=== PATIENT | female | born 1960 | race Caucasian/White ===

== ENCOUNTER → 2017-02-26 | Outpatient (CLI) | payer BC ==
--- NOTE | 2017-02-26 11:54 | XR ---
Lumbosacral spine HISTORY: Back pain 5 views of the lumbosacral spine There is anterolisthesis grade 1 L4-5. Multilevel spondylosis is present. Loss of disc height present at the intervertebral levels. Lumbar vertebral bodies show preserved height. Bone mineralization is maintained. No evident spondylolysis. There is a mild spinal curvature. Calcifications superimposed o courtney the lower pole of the kidneys suggested. IMPRESSION: Degenerative disc disease and facet arthropathy. Suspect bilateral nephrolithiasis.
== END | disposition home or self-care (01) ==
LOC: RADXRYALE 11:06
PROVIDERS: ATTEND Family Medicine
DX: M51.36 Other intervertebral disc degeneration, lumbar region (principal); M46.06 Spinal enthesopathy, lumbar region
CPT/HCPCS: 72110

== ENCOUNTER → 2017-08-19 | Outpatient (CLI) | payer BC ==
--- NOTE | 2017-08-20 09:31 | MM ---
Reason for exam: screening (asymptomatic). Last mammogram was performed 1 year and 2 months ago. History: Family history of breast cancer in mother at age 61. Benign stereotactic core biopsy of the right breast, June 12, 2001. Reductions of both breasts, 1998. Core biopsy of the right breast. Physical Findings: A clinical breast exam by your physician is recommended on an annual basis and results should be correlated with mammographic findings. MG Screening Mammo w CAD Bilateral CC and MLO view(s) were taken. Prior study comparison: June 28, 2016, bilateral MG screening mammo w CAD. November 03, 2014, bilateral MG screening mammo w CAD. There are scattered fibroglandular densities. Stable benign calcifications. There is no discrete abnormality. No significant changes when compared with prior studies. ASSESSMENT: Benign, BI-RAD 2 RECOMMENDATION: Routine screening mammogram of both breasts in 1 year.
== END | disposition home or self-care (01) ==
LOC: RADMAMWWP 10:08
PROVIDERS: ATTEND Family Medicine
DX: Z12.31 Encounter for screening mammogram for malignant neoplasm of breast (principal)
CPT/HCPCS: 77067

== ENCOUNTER → 2017-11-05 | Outpatient (CLI) | payer BC ==
[2017-11-05 10:32] VITALS: BP 166/90; PULSE 80; RESP 20; TEMP 97.3; BMI 47.9
--- NOTE | 2017-11-05 11:27 | P.HPOB ---
History of Present Illness H&P Date: 11/05/17 Chief Complaint: The patient is here for her routine gynecologic exam. This is a 57-year-old G3 PIII with an LMP of 2013. The patient has been experiencing vaginal dryness and discomfort because of the dryness with sexual activity. She states she did not use the estrogen vaginal cream that was prescribed to her. She has used lubrication with slight improvement. She is otherwise without complaints and denies any postmenopausal bleeding. Review of Systems She has gained about 10 pounds over the last year. She denies respiratory, cardiac, or G.I. problems. Past Medical History Past Medical History: Asthma, Hypertension Additional Past Medical History / Comment(s): Arthritis. Past OB History: 3 section deliveries. 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 She has been menopausal since 2013. History of Any Multi-Drug Resistant Organisms: None Reported Past Surgical History: Breast Surgery (Breast reduction surgery), Section (Times 3), Cholecystectomy (Open), Tonsillectomy Past Anesthesia/Blood Transfusion Reactions: No Reported Reaction Past Psychological History: No Psychological Hx Reported Smoking Status: Never smoker Past Alcohol Use History: Occasional (3 to 4 per week) Past Drug Use History: None Reported - Past Family History Mother Family Medical History: Cancer, COPD Additional Family Medical History / Comment(s): emphysema,arthritis,skin and breast cancer Father Family Medical History: Cancer, Diabetes Mellitus, Hypertension Additional Family Medical History / Comment(s): stomach cancer Medications and Allergies Home Medications Medication Instructions Recorded Confirmed Type Albuterol Inhaler [Ventolin Hfa 1 - 2 puff INHALATION Q6HR PRN 11/05/17 History Inhaler] Meloxicam [Mobic] 15 mg PO DAILY 11/05/17 11/05/17 History Montelukast [Singulair] 10 mg PO DAILY 11/05/17 11/05/17 History Allergies Allergy/AdvReac Type Severity Reaction Status Date / Time Sulfa (Sulfonamide Allergy Rash/Hives Verified 11/05/17 11:23 Antibiotics) tetracycline Allergy Rash/Hives Verified 11/05/17 11:23 Exam - Vital Signs Vital signs: Vital Signs Temp Pulse Resp BP 11/05/17 10:22 97.3 F L 80 20 166/90 Intake and Output 11/04/17 11/05/17 11/05/17 22:59 06:59 14:59 Other: Weight 130.635 kg Height 5'5" BMI 47.9. This is a well-developed heavyset white female who is alert and oriented times 3 in no acute distress. HEENT: Within normal limits. NECK: Supple without mass or thyromegaly. CHEST AND LUNGS: Clear to auscultation. HEART: Regular rate and rhythm. BREASTS: Are without mass or discharge. AXILLARY EXAM: Negative for adenopathy. BACK: Negative for CVA tenderness. ABDOMEN: Soft, nontender, without palpable masses. PELVIC EXAM: Normal external genitalia with mild atrophy. Cervix and vagina appear normal with mild atrophy. There is no unusual discharge. There is no evidence of prolapse. The uterus is midposition, nongravid size and nontender. There are no palpable adnexal masses or tenderness. Bimanual examination is somewhat limited secondary to her size. RECTAL EXAM: recto vaginal exam is negative for mass or tenderness and is negative for occult blood. EXTREMITIES: Nontender. IMPRESSION: 1. 57-year-old menopausal female with normal gynecologic exam. 2. Dyspareunia secondary to vaginal dryness which is related to genital atrophy. PLAN: 1. Pap smear was performed. 2. Self breast examination was discussed. 3. Screening mammogram was done on 08/19/2017 and was benign. She will repeat this in one year. 4. Osteoporosis prevention was discussed. 5. Trial of Premarin vaginal cream 1 to 2 g intravaginally 2 times per week. A written prescription was given to the patient since she would like to shop around for this. 6. Colonoscopy was recommended. She will follow up with her primary care physician for this. 7. She will return in one year and PRN.
== END | disposition home or self-care (01) ==
LOC: WWCWWP 10:16
PROVIDERS: ATTEND Obstetrics & Gynecology
DX: Z53.9 Procedure and treatment not carried out, unspecified reason (principal)

== ENCOUNTER 2018-02-18 10:45 | Inpatient (IN) | payer BC ==
[2018-02-12 15:28] VITALS: BMI 46.5
--- NOTE | 2018-02-17 10:05 | HP ---
HISTORY AND PHYSICAL CHIEF COMPLAINT: Right knee pain. 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 It has worsened recently. She is having a difficult time with stairs and walking. She has been taking medications for this with only partial temporary relief. PAST MEDICAL HISTORY: Significant for asthma and hypertension. PAST SURGICAL HISTORY: Significant for breast reduction, section, and cholecystectomy. CURRENT MEDICATIONS: 1. Hydrochlorothiazide. 2. Lisinopril. 3. Mobic. 4. Singulair. 5. Tramadol. ALLERGIES: She has allergies to TETRACYCLINE and SULFA. FAMILY HISTORY: Significant for heart disease and cancer. SOCIAL HISTORY: Significant for previous tobacco use. REVIEW OF SYSTEMS: Sixteen-point review of systems otherwise reviewed and is noncontributory. PHYSICAL EXAMINATION: On examination, the patient is approximately 5 feet 5 inches, 288 pounds of endomorphic habitus. She has a BMI of 47.93. HEENT exam is nonfocal. Neck is supple. She has painless passive motion of the right hip. Straight leg raise is negative. Active motion right knee -12 to 80 degrees of flexion. She has a moderate effusion. She is tender about the medial joint line. Collaterals are stable, Tony's negative, Nan's is equivocal. She has genu varum alignment. Her distal neurovascular exam appears intact in the right lower extremity. Previous weightbearing notch, lateral and Merchant views of the right knee obtained in the office show severe medial and patellofemoral compartment narrowing. IMPRESSION: 1. Right knee severe medial and patellofemoral compartment osteoarthrosis. 2. Increased body mass index of 47.93. RECOMMENDATIONS: I talked to the patient at length regarding her condition and treatment options. At this point, she is quite symptomatic because of pain related to her osteoarthrosis despite conservative measures. After thorough discussion, she opts to proceed with surgery. We will plan to proceed with right total knee arthroplasty. Risks and benefits were discussed at length in layman's terms. The patient underwent preoperative medical evaluation by Dr. Nolan. We will institute DVT prophylaxis postoperatively. MMODL / IJN: [id number] /
[~2018-02-18 10:45] MED LIST: ACETAMINOPHEN TAB 500 MG TAB PO ONE; DEXAMETHASONE SOD PHOSPHATE 10 MG/ML 1 ML VIAL IV ONE; HYDROmorphone 0.5 MG/0.5 ML SYRINGE IVP PRN; LIDOCAINE 1% 20 ML VIAL (10MG/ML) FOR IV START INTRADERMA PRN; MELOXICAM 7.5 MG TAB PO ONE; MIDAZOLAM 2 MG/2 ML VIAL IV PRN; ONDANSETRON 4 MG/2 ML VIAL IVP ONE; ROPIVACAINE 1,100 MG, SODIUM CHLORIDE 0.9% 330 ML MISCELLANE PRN; SCOPOLAMINE 1.5MG/72HR PATCH TRANSDERM ONE; TRANEXAMIC ACID 1,000 MG in SODIUM CHLORIDE 0.9% 50 ML IVPB ONE
[2018-02-18] MEDS: LACTATED RINGERS 1,000 ML IV SCH (12:23)
[2018-02-18] MEDS ORDERED: MIDAZOLAM 2 MG/2 ML VIAL IVP ONE (13:15)
[2018-02-18] MEDS ORDERED: ROPIVACAINE 246.25 MG, EPINEPHrine 0.5 MG, KETOROLAC 30 MG, cloNIDine HCL/PF 80 MCG, WA... MISCELLANE ONE ×5 (13:33)
[2018-02-18] MEDS ORDERED: MIDAZOLAM 2 MG/2 ML VIAL ONE (14:10)
[2018-02-18] MEDS ORDERED: fentaNYL (PF) 50 MCG/ML 2 ML AMP ONE (14:10)
[2018-02-18] MEDS ORDERED: TRANEXAMIC ACID 1,000 MG/10 ML VIAL ONE (14:10)
[2018-02-18] MEDS ORDERED: diphenhydrAMINE 50 MG/ML 1 ML VIAL ONE (14:10)
[2018-02-18] MEDS ORDERED: PROPOFOL 10 MG/ML 20 ML VIAL IV ONE (14:10)
[2018-02-18] MEDS ORDERED: PHENYLEPHRINE-0.9% NACL SYG 1 MG/10 ML SYRINGE ONE (14:10)
[2018-02-18] MEDS ORDERED: SODIUM CHLORIDE 0.9% 100 ML BAG ONE (14:10)
--- NOTE | 2018-02-18 14:39 | P.ONQ ---
Anesthesiology Proc Note - PNB - Peripheral Nerve Block Performed Right Adductor Canal Infusion Time Out Performed: Yes ([id number]) Procedure Start Time: 13:25 Procedure Stop Time: 13:35 Indication: Acute Post-Operative Pain, Dx/Pain Location (Right Knee Pain), Requested by physician Sedation Type: Sedate with meaningful contact maintained Preparation: Sterile Prep Position: Supine Catheter: Indwelling Needle Types: On-Q Needle Size: 100mm (4") Needle Gauge: 21 Technique: Ultrasound Injectate: 0.5% Ropivacaine (see comment for volume) (20ml) Blood Aspirated: No Pain Paresthesia on Injection Noted: No Resistance on Injection: Normal Events: Uneventful and Well Tolerated
[2018-02-18] MEDS ORDERED: ceFAZolin 3,000 MG in SODIUM CHLORIDE 0.9% IRRIGATIO 3,000 ML IRRIGATION ONE (14:45)
[2018-02-18] MEDS ORDERED: LACTATED RINGERS 1,000 ML IV ONE ×2 (15:02)
[2018-02-18] MEDS ORDERED: ACETAMINOPHEN TAB 325 MG TAB PO PRN (15:48)
[2018-02-18] MEDS ORDERED: NALOXONE 0.4 MG/ML 1 ML VIAL IV PRN (15:48)
[2018-02-18] MEDS ORDERED: MORPHINE SULFATE 4 MG/ML SYRINGE IV PRN (15:48)
[2018-02-18] MEDS ORDERED: MAGNESIUM HYDROXIDE 2,400 MG/10 ML CUP PO PRN (15:48)
[2018-02-18] MEDS ORDERED: ONDANSETRON 4 MG/2 ML VIAL IVP PRN (15:48)
[2018-02-18] MEDS ORDERED: HYDROcodone/APAP 7.5-325MG 1 EACH TAB PO PRN (15:48)
[2018-02-18] MEDS ORDERED: MORPHINE SULFATE 2 MG/ML SYRINGE IVP PRN ×2 (15:48)
--- NOTE | 2018-02-18 16:27 | P.OP ---
Date of Procedure: 02/18/18 Preoperative Diagnosis: Right knee severe tricompartmental osteoarthrosis Postoperative Diagnosis: Same Procedure(s) Performed: Right total knee arthroplasty-cruciate retaining-cemented Implants: Depuy Attune size 6 narrow cemented femoral component, size 5 cemented tibial component with a 50 mm stem augmentation, 9 mm articular surface, 35 mm cemented patellar component. This is a posterior stabilized implant. Anesthesia: regional, local, spinal Surgeon: Juancarlos Chakraborty Front End Mechanic #1: Alex Najera Estimated Blood Loss (ml): 50 Pathology: other (Bone fragments) Condition: stable Disposition: PACU Indications for Procedure: The patient's a 57-year-old female who presents with progressive right knee pain secondary to osteoarthrosis despite conservative measures. A discussion of the risks and benefits of operative intervention versus continued conservative measures was made with patient. She opted to proceed with surgery. Specific risks of surgery to include infection, neurovascular injury, development of blood clots, possible component loosening, possible component failure and need for subsequent procedures was discussed. Informed consent was obtained. Operative Findings: As below Description of Procedure: The patient was brought to the operating room, and after induction of spinal anesthesia the right lower extremity was prepped and draped in normal fashion. The tourniquet was inflated to 270 mmHg. A longitudinal incision extending 3 finger breaths above the superior pole of patella extending to the medial aspect of the tibial tubercle was then made. The skin and subcutaneous tissues were divided sharply. Electrocautery was used for hemostasis. A medial parapatellar arthrotomy was then performed. The medial soft tissues to include the superficial and deep portions of the medial collateral ligament as well as the medial hamstring tendons were elevated subperiosteally. The proximal medial tibial osteophytes were carefully removed. The patella was everted. The knee was then flexed. The anterior cruciate ligament was sacrificed. A portion of the retropatellar fat pad was excised sharply. A starting hole was made in the distal femur 1 cm anterior to the posterior cruciate and origin. An intramedullary femoral guide was gently inserted planning on 5 valgus distal cut with 9 mm distal resection. The cutting block was pinned in place. The distal cut was then made. The posterior referencing sizing guide was utilized. I felt size 6 was most appropriate. 3 of external rotation was built into the system and verified off the trans-epicondylar axis and the posterior condyles. The cutting block was pinned in place. The anterior, posterior, and chamfer cuts were then made. The box guide was then used for the intercondylar cut which was performed with a reciprocating saw. The bone block was removed in one fragment. The trial femoral component was placed. There is good anterior to posterior and medial to lateral fit. The distal peg holes were drilled. The trial component was then removed. Attention was then paid towards preparing the proximal tibia. An extra medullary tibial guide was utilized in line with the tibial shaft and second metatarsal distally. I planned on a 0 posterior slope. I planned on 2 mm resection from the medial compartment. The cutting block was pinned in place. The proximal tibial cut was made and the bone removed in one fragment. The flexion and extension gaps were tight and therefore an additional 2 mm was resected utilizing the cutting block. The remnants of the medial and lateral menisci were excised the capsule junction with electrocautery. The tibia sized most appropriately at size 5. The trial femoral and tibial components were placed along with a 9 mm articular surface. I would to obtain full flexion and extension with good stability with varus and valgus stress. After several flexion and extension cycles, the tibial rotation was marked with electrocautery in line with the medial one third of the tibial tubercle. Attention was then paid towards preparing the patella. A patella reamer was utilized taking this down to 14 mm of bone stock. A good flush cut was made. The patella sized most appropriately 35 mm. The peg holes were drilled. The trial components placed. The knee was taken through range of motion. I had good patellofemoral tracking with no hands technique. The trial components were then removed. The posterior osteophytes of the distal femur were carefully removed with a curved osteotome. The tibia was prepared in the appropriate rotation with the appropriate drill and keel punch. The flexion and extension gaps were checked and felt to be symmetric. Bony surfaces were prepared with pulsatile lavage and dried. The tibial component was then cemented in placed and was fully seated. Excess cement was removed. The femoral component was cemented place and was fully seated. Excess cement was removed. The trial 9 mm articular surface was placed and the knee was put in full extension. The patella component cemented placed and was fully seated. After the cement had sufficiently hardened, the knee was again taken through a range of motion. Again I was able to obtain full flexion and extension with good stability with varus and valgus stress. The trial articular surface was removed and the final 9 mm articular surface was placed. This was fully seated. Pulsatile lavage was utilized. The tourniquet was deflated with the proximal a 70 minutes total tourniquet time. Final hemostasis was obtained with electrocautery. The second dose of IV TXA was given. The medial parapatellar arthrotomy was closed with #2 Ethibond suture. A deep drain was placed exiting laterally. The subcutaneous tissues were reapproximated with interrupted 2-0 Vicryl sutures. The skin was reapproximated with 3-0 subcuticular strata fix suture. Skin tape and adhesive was applied. A sterile dressing was applied. The patient was then awoken from sedation and transferred to the recovery room in good condition. Blood loss was estimated at 50 mL. No complications were incurred. Sponge and needle counts were correct in the case.
--- NOTE | 2018-02-18 16:39 | XR ---
EXAMINATION TYPE: XR knee limited RT DATE OF EXAM: 02/18/2018 COMPARISON: 10/21/2014 HISTORY: Postop knee surgery TECHNIQUE: 2 views FINDINGS: There is a new right knee prosthesis. Components appear in anatomic position. IMPRESSION: No complicating process seen.
[2018-02-18] MEDS: traMADol 50 MG TAB PO SCH ×2 (18:23→20:58)
--- NOTE | 2018-02-18 18:53 | P.CONS ---
History of Present Illness - Reason for Consult Consult date: 02/18/18 Management of asthma and hypertension Requesting physician: Juancarlos Chakraborty - Chief Complaint Medical management of asthma and hypertension - History of Present Illness The patient is a 57 morbidly obese female who is currently postop day #0 after having a right total knee replacement secondary to a history of severe right knee osteoarthrosis. The patient reports her pain is adequately controlled she does mention some numbness and tingling in her right lower extremity, as she is able to wiggle her toes. She denies any chest pain or shortness of breath. She denies any wheezes or cough, she reports an episode of nausea that has since resolved since having Zofran. Review of Systems All other 12 point review of systems negative except per HPI Past Medical History Past Medical History: Asthma, Hypertension, Osteoarthritis (OA) Additional Past Medical History / Comment(s): . History of Any Multi-Drug Resistant Organisms: None Reported Past Surgical History: Breast Surgery, Section, Cholecystectomy, Tonsillectomy Additional Past Surgical History / Comment(s): C/S x3, param breast reduction Past Anesthesia/Blood Transfusion Reactions: No Reported Reaction Past Psychological History: No Psychological Hx Reported Smoking Status: Former smoker Past Alcohol Use History: Occasional Additional Past Alcohol Use History / Comment(s): smoked from age [age], Past Drug Use History: None Reported - Past Family History Mother Family Medical History: Cancer, GI Bleed Additional Family Medical History / Comment(s): skin and breast cancer Father Family Medical History: Cancer Additional Family Medical History / Comment(s): stomach cancer Medications and Allergies Home Medications Medication Instructions Recorded Confirmed Type Albuterol Inhaler [Ventolin Hfa 1 - 2 puff INHALATION RT-Q6H PRN 11/05/17 History Inhaler] Meloxicam [Mobic] 15 mg PO DAILY 11/05/17 02/18/18 History Montelukast [Singulair] 10 mg PO HS 11/05/17 02/18/18 History Acetaminophen [Tylenol Extra 1,000 mg PO BID PRN 02/12/18 02/18/18 History Strength] Hydrochlorothiazide [Hydrodiuril] 25 mg PO DAILY 02/12/18 02/18/18 History Lisinopril [Zestril] 20 mg PO BID 02/12/18 02/18/18 History Multivitamins, Thera [Multivitamin 1 tab PO DAILY 02/12/18 02/18/18 History (formulary)] traMADol HCL [Ultram] 50 mg PO TID PRN 02/12/18 02/18/18 History Apixaban [Eliquis] 2.5 mg PO BID #30 tab 02/18/18 Rx Allergies Allergy/AdvReac Type Severity Reaction Status Date / Time codeine Allergy Rash/Hives Verified 02/18/18 18:47 Sulfa (Sulfonamide Allergy Rash/Hives Verified 02/18/18 18:47 Antibiotics) tetracycline Allergy Rash/Hives Verified 02/18/18 18:47 Physical Exam Vitals: Vital Signs Temp Pulse Resp BP BP Pulse Ox 02/18/18 17:20 84 12 114/81 95 02/18/18 17:00 78 16 120/55 95 02/18/18 16:45 78 18 113/61 96 02/18/18 16:30 84 18 121/60 96 02/18/18 16:14 97.8 F 94 18 125/58 96 02/18/18 13:27 79 18 128/60 96 02/18/18 13:02 75 18 142/65 95 02/18/18 11:49 99.0 F 88 18 160/76 95 Intake and Output 02/18/18 02/18/18 02/18/18 06:59 14:59 22:59 Intake Total 1051 925 Output Total 300 Balance 1051 625 Intake: IV 1051 925 Output: Urine 250 Estimated Blood Loss 50 Other: Weight 127.006 kg Constitutional: No acute distress, conversant, pleasant Eyes: Anicteric sclerae, moist conjunctiva, no lid-lag, PERRLA ENMT: NC/AT,Oropharynx clear, no erythema, exudates Neck:Supple, FROM, no masses, or JVD, No carotid bruits; No thyromegaly Lungs: Clear to auscultation, Clear to percussion, Normal respiratory effort, no accessory muscle use Cardiovascular: Heart regular in rate and rhythm, No murmurs, gallops, or rubs no peripheral edema Abdominal: Soft Nontender, nom distended, no guarding, no rebound or rigidity, Normoactive bowel sounds No hepatomegaly, No splenomegaly, No palpable mass No abdominal wall hernia noted Skin: Normal temperature, tone, texture, turgor, No induration No subcutaneous nodules, No rash, lesions, No ulcers Extremities:No digital cyanosis No clubbing, Pedal pulses intact and symmetrical Radial pulses intact and symmetrical Normal gait and station, No calf tenderness Psychiatric: Alert and oriented to person, place and time, Appropriate affect Intact judgement Neuro: Muscles Strength 5/5 in all 4 extremities, Sensation to light touch grossly present throughout, Cranial nerves II-XII grossly intact. No focal sensory deficits Assessment and Plan (1) History of arthroplasty of right knee Current Visit: Yes Status: Acute Code(s): Z96.651 - PRESENCE OF RIGHT ARTIFICIAL KNEE JOINT SNOMED Code(s): 158300677 (2) Asthma Current Visit: Yes Status: Acute Code(s): J45.909 - UNSPECIFIED ASTHMA, UNCOMPLICATED SNOMED Code(s): 366276803 (3) Essential hypertension Current Visit: Yes Status: Acute Code(s): I10 - ESSENTIAL (PRIMARY) HYPERTENSION SNOMED Code(s): 40076933 Plan: The patient is admitted to Dr. Oliver primary orthopedic service and is postop day #0 status post right knee total arthroplasty, will defer to primary team regarding ongoing pain management. Otherwise patient is hemodynamically stable she has asthma, which is stable without any acute exacerbation, her blood pressure is also stable resume her home medications, follow-up postop CBC. Agree with plan for physical therapy and rehab
[2018-02-18] MEDS: SENNOSIDES-DOCUSATE SODIUM 1 EACH TAB PO SCH (20:58)
[2018-02-18] MEDS: MONTELUKAST 10 MG TAB PO SCH (21:02)
[2018-02-18] MEDS: LISINOPRIL 20 MG TAB PO SCH (21:02)
[2018-02-18] MEDS: HYDROcodone/APAP 7.5-325MG 1 EACH TAB PO PRN (22:24)
[2018-02-19] MEDS: LACTATED RINGERS 1,000 ML IV SCH (00:29)
[2018-02-19] MEDS: HYDROcodone/APAP 7.5-325MG 1 EACH TAB PO PRN ×3 (05:17→16:03)
--- NOTE | 2018-02-19 05:39 | P.PN ---
Progress Note - Text Progress Note Date: 02/19/18 The patient is doing well status post total knee replacement. Pain is well controlled by a combination of local anesthetic infusion through the adductor canal catheter and oral analgesics. There are no signs of infection around the catheter skin entry site. The local anesthetic infusion will be continued as per protocol.
[2018-02-19 07:33] LABS: Basophils % (A) 0 %; Eosinophils % (A) 0 %; HCT 34.6 % (34.0-46.0); HGB 11.4 gm/dL (11.4-16.0); Lymphocytes # (A) 1.6 k/uL (1.0-4.8); Lymphocytes % (A) 15 %; MCH 32.2 pg (25.0-35.0); MCHC 33.1 g/dL (31.0-37.0); MCV 97.3 fL (80.0-100.0); Mean Platelet Volume 7.8; Monocytes # (A) 0.6 k/uL (0-1.0); Monocytes % (A) 5 %; Neutrophils # (A) 8.7 k/uL (1.3-7.7); Neutrophils % (A) 78 %; Platelet Count 221 k/uL (150-450); RBC 3.56 m/uL (3.80-5.40); RDW 13.9 % (11.5-15.5); WBC 11.2 k/uL (3.8-10.6)
[2018-02-19] MEDS: LISINOPRIL 20 MG TAB PO SCH ×2 (08:38→21:12)
[2018-02-19] MEDS: traMADol 50 MG TAB PO SCH ×4 (08:38→21:12)
[2018-02-19] MEDS: HYDROCHLOROTHIAZIDE 25 MG TAB PO SCH (08:38)
[2018-02-19] MEDS: RIVAROXABAN 10 MG TAB PO SCH (08:58)
--- NOTE | 2018-02-19 10:45 | P.PN ---
Subjective Progress Note Date: 02/19/18 The patient doing well postop day #1 after having right total knee arthroplasty. Reports the pain is adequately controlled. He does report some right lower extremity paresthesias, but has good pedal pulses and good color. No acute events overnight Objective - Vital Signs Vital signs: Vital Signs Temp 97.8 F 02/19/18 07:15 Pulse 64 02/19/18 07:15 Resp 12 02/19/18 07:15 BP 120/78 02/19/18 07:15 Pulse Ox 97 02/19/18 07:15 Intake & Output 02/18/18 02/19/18 02/19/18 18:59 06:59 18:59 Intake Total 1976 840 Output Total 949 155 7810 Balance 1676 580 -1200 Weight 127.006 kg Intake: IV 1975 Intake, IV Titration 840 Amount Lactated Ringers 1,000 ml 840 @ 70 mls/hr IV .[id number] [id number] Rx#:[id number] Output: Drainage 260 Knee 260 Urine 250 1200 Uretheral ([place]) 1200 Estimated Blood Loss 50 - Exam Constitutional: No acute distress, conversant, pleasant Eyes: Anicteric sclerae, moist conjunctiva, no lid-lag, PERRLA ENMT: NC/AT,Oropharynx clear, no erythema, exudates Neck:Supple, FROM, no masses, or JVD, No carotid bruits; No thyromegaly Lungs: Clear to auscultation, Clear to percussion, Normal respiratory effort, no accessory muscle use Cardiovascular: Heart regular in rate and rhythm, No murmurs, gallops, or rubs no peripheral edema Abdominal: Soft Nontender, nom distended, no guarding, no rebound or rigidity, Normoactive bowel sounds No hepatomegaly, No splenomegaly, No palpable mass No abdominal wall hernia noted Skin: Normal temperature, tone, texture, turgor, No induration No subcutaneous nodules, No rash, lesions, No ulcers Extremities: Right anterior knee effusion and swelling postoperatively. No digital cyanosis No clubbing, Pedal pulses intact and symmetrical Radial pulses intact and symmetrical Normal gait and station, No calf tenderness Psychiatric: Alert and oriented to person, place and time, Appropriate affect Intact judgement Neuro: Muscles Strength 5/5 in all 4 extremities, Sensation to light touch grossly present throughout, Cranial nerves II-XII grossly intact. No focal sensory deficits - Labs CBC & Chem 7: 02/19/18 07:01 Labs: Abnormal Lab Results - Last 24 Hours (Table) 02/19/18 Range/Units 07:01 WBC 11.2 H (3.8-10.6) k/uL RBC 3.56 L (3.80-5.40) m/uL Neutrophils # 8.7 H (1.3-7.7) k/uL Assessment and Plan (1) Asthma Narrative/Plan: * Stable disease without any acute exacerbation Current Visit: Yes Status: Acute Code(s): J45.909 - UNSPECIFIED ASTHMA, UNCOMPLICATED SNOMED Code(s): 088375760 (2) Essential hypertension Narrative/Plan: * Blood pressure stable controlled continue home regimen of HCTZ and lisinopril Current Visit: Yes Status: Acute Code(s): I10 - ESSENTIAL (PRIMARY) HYPERTENSION SNOMED Code(s): 50810910 (3) History of arthroplasty of right knee Narrative/Plan: * Post op management per orthopedic service * Continue with PT OT plans for rehab therapy Current Visit: Yes Status: Acute Code(s): Z96.651 - PRESENCE OF RIGHT ARTIFICIAL KNEE JOINT SNOMED Code(s): 317700017 Plan: Anticipated discharge: Per primary team
--- NOTE | 2018-02-19 12:35 | P.PN ---
Subjective Progress Note Date: 02/19/18 Principal diagnosis: Status post right total knee arthroplasty Patient seen today resting in her hospital bed, she appears comfortable. She's ambulated with therapy. Pain is controlled at this time. She denies any headaches, lightheadedness, chest pain or shortness of breath. Objective - Vital Signs Vital signs: Vital Signs Temp 97.8 F 02/19/18 07:15 Pulse 64 02/19/18 07:15 Resp 12 02/19/18 07:15 BP 120/78 02/19/18 07:15 Pulse Ox 97 02/19/18 07:15 Intake & Output 02/18/18 02/19/18 02/19/18 18:59 06:59 18:59 Intake Total 1976 840 Output Total 058 370 2496 Balance 1676 580 -1450 Weight 127.006 kg Intake: IV 1975 Intake, IV Titration 840 Amount Lactated Ringers 1,000 ml 840 @ 70 mls/hr IV .[id number] TEREZA Rx#:[id number] Output: Drainage 260 Knee 260 Urine 250 1450 Uretheral ([place]) 1200 Estimated Blood Loss 50 Other: # Voids 1 - Exam Right lower extremity: Incision is clean, dry, and intact. The prineo tape is in good condition. There is minimal soft tissue swelling and ecchymosis surrounding the medial and lateral aspects of the incision. Calf is soft, no tenderness with palpation. Plantar flexion, dorsiflexion, EHL, FHL are intact. Sensory exam to light touch throughout the extremity is intact, dorsal pedis pulses 2+. - Labs CBC & Chem 7: 02/19/18 07:01 Labs: Abnormal Lab Results - Last 24 Hours (Table) 02/19/18 Range/Units 07:01 WBC 11.2 H (3.8-10.6) k/uL RBC 3.56 L (3.80-5.40) m/uL Neutrophils # 8.7 H (1.3-7.7) k/uL Assessment and Plan Plan: Assessment: Postoperative day 1 status post right total knee arthroplasty Plan: Pain control, continue oral medication GI and DVT prophylaxis Ice and elevate often Wound care instructions discussed Medical recommendations Discharge planning: Patient may be discharged home today Time with Patient: Less than 30
[2018-02-19] MEDS: MULTIVITAMINS, THERA 1 EACH TAB PO SCH (13:57)
[2018-02-19 19:43] VITALS: RESP 16
[2018-02-19] MEDS: SENNOSIDES-DOCUSATE SODIUM 1 EACH TAB PO SCH (21:12)
[2018-02-19] MEDS: MONTELUKAST 10 MG TAB PO SCH (21:12)
[2018-02-20] MEDS: LACTATED RINGERS 1,000 ML IV SCH (05:10)
--- NOTE | 2018-02-20 07:21 | P.PN ---
Progress Note - Text Postoperative day # 2 status post total knee arthroplasty, on adductor canal perineural catheter placed for postoperative analgesia. Ropivacaine 0.2% 10 mL per hour through ON-Q pump continuous infusion. Pain control ok, had to increase infusion last night. On visual analog scale 4/ 10 Patient is taking PRN oral pain medications. Catheter site: Looks Ok. There is no erythema or tenderness. Continue with the current pain management plan and will follow.
[2018-02-20] MEDS: traMADol 50 MG TAB PO SCH (08:19)
[2018-02-20 08:26] VITALS: BP 149/85; PULSE 85; TEMP 98.2
[2018-02-20] MEDS: RIVAROXABAN 10 MG TAB PO SCH (08:28)
[2018-02-20] MEDS: LISINOPRIL 20 MG TAB PO SCH (08:29)
[2018-02-20] MEDS: HYDROCHLOROTHIAZIDE 25 MG TAB PO SCH (08:29)
[2018-02-20] MEDS: MULTIVITAMINS, THERA 1 EACH TAB PO SCH (08:31)
--- NOTE | 2018-02-20 10:15 | P.PN ---
Subjective Progress Note Date: 02/20/18 The patient doing well postop day 2 after having right total knee arthroplasty. Reports the pain is adequately controlled. Patient has no complaints today plans to go home and receive home physical therapy No acute events overnight Objective - Vital Signs Vital signs: Vital Signs Temp 98.2 F 02/20/18 08:25 Pulse 85 02/20/18 08:25 Resp 16 02/20/18 08:25 BP 149/85 02/20/18 08:25 Pulse Ox 92 L 02/20/18 08:25 Intake & Output 02/19/18 02/20/18 02/20/18 18:59 06:59 18:59 Intake Total 1540 240 Output Total 1450 Balance -1450 1540 240 Intake: Oral 1540 240 Output: Urine 1450 Uretheral ([place]) 1200 Other: # Voids 1 1 - Exam Constitutional: No acute distress, conversant, pleasant Eyes: Anicteric sclerae, moist conjunctiva, no lid-lag, PERRLA ENMT: NC/AT,Oropharynx clear, no erythema, exudates Neck:Supple, FROM, no masses, or JVD, No carotid bruits; No thyromegaly Lungs: Clear to auscultation, Clear to percussion, Normal respiratory effort, no accessory muscle use Cardiovascular: Heart regular in rate and rhythm, No murmurs, gallops, or rubs no peripheral edema Abdominal: Soft Nontender, nom distended, no guarding, no rebound or rigidity, Normoactive bowel sounds No hepatomegaly, No splenomegaly, No palpable mass No abdominal wall hernia noted Skin: Normal temperature, tone, texture, turgor, No induration No subcutaneous nodules, No rash, lesions, No ulcers Extremities: Right anterior knee effusion and swelling postoperatively. No digital cyanosis No clubbing, Pedal pulses intact and symmetrical Radial pulses intact and symmetrical Normal gait and station, No calf tenderness Psychiatric: Alert and oriented to person, place and time, Appropriate affect Intact judgement Neuro: Muscles Strength 5/5 in all 4 extremities, Sensation to light touch grossly present throughout, Cranial nerves II-XII grossly intact. No focal sensory deficits - Labs CBC & Chem 7: 02/19/18 07:01 Assessment and Plan (1) Asthma Narrative/Plan: * Stable disease without any acute exacerbation Current Visit: Yes Status: Acute Code(s): J45.909 - UNSPECIFIED ASTHMA, UNCOMPLICATED SNOMED Code(s): 922135352 (2) Essential hypertension Narrative/Plan: * Blood pressure stable controlled continue home regimen of HCTZ and lisinopril Current Visit: Yes Status: Acute Code(s): I10 - ESSENTIAL (PRIMARY) HYPERTENSION SNOMED Code(s): 36337065 (3) History of arthroplasty of right knee Narrative/Plan: * Post op management per orthopedic service * Continue with PT OT plans for rehab therapy Current Visit: Yes Status: Acute Code(s): Z96.651 - PRESENCE OF RIGHT ARTIFICIAL KNEE JOINT SNOMED Code(s): 979987224 Plan: Patient medically stable for discharge, we will plan to sign off today
[2018-02-20] MEDS: HYDROcodone/APAP 7.5-325MG 1 EACH TAB PO PRN (10:38)
--- NOTE | 2018-02-20 10:49 | P.PN ---
Subjective Progress Note Date: 02/20/18 Principal diagnosis: Status post right total knee arthroplasty Patient seen today resting in her hospital bed, she appears comfortable. She's ambulated with therapy. Pain is controlled at this time. She denies any headaches, lightheadedness, chest pain or shortness of breath. Objective - Vital Signs Vital signs: Vital Signs Temp 98.2 F 02/20/18 08:25 Pulse 85 02/20/18 08:25 Resp 16 02/20/18 08:25 BP 149/85 02/20/18 08:25 Pulse Ox 92 L 02/20/18 08:25 Intake & Output 02/19/18 02/20/18 02/20/18 18:59 06:59 18:59 Intake Total 1540 240 Output Total 1450 Balance -1450 1540 240 Intake: Oral 1540 240 Output: Urine 1450 Uretheral ([place]) 1200 Other: # Voids 1 1 - Exam Right lower extremity: Incision is clean, dry, and intact. The prineo tape is in good condition. There is minimal soft tissue swelling and ecchymosis surrounding the medial and lateral aspects of the incision. Calf is soft, no tenderness with palpation. Plantar flexion, dorsiflexion, EHL, FHL are intact. Sensory exam to light touch throughout the extremity is intact, dorsal pedis pulses 2+. - Labs CBC & Chem 7: 02/19/18 07:01 Assessment and Plan Plan: Assessment: Postoperative day #2 status post right total knee arthroplasty Plan: Pain control, continue oral medication GI and DVT prophylaxis Ice and elevate often Wound care instructions discussed Medical recommendations Discharge planning: Patient will be discharged home today Time with Patient: Less than 30
--- NOTE | 2018-02-20 10:52 | P.DS ---
Providers Date of admission: 02/18/18 11:32 Expected date of discharge: 02/20/18 Attending physician: Juancarlos Chakraborty Consults: 02/18/18 15:48 Consult Physician Routine Consulting Provider: Ofelia Valdes Consult Reason/Comments: medical management Do you want consulting provider notified?: Yes Primary care physician: Stated None Hospital Course: Date of admission: 02/18/2018 Date of discharge: 02/20/2018 Admission diagnosis: Status post right total knee arthroplasty Discharge diagnosis: Same Attending physician: Dr. Chakraborty Surgical procedures: Right total knee arthroplasty Brief history: Patient is a 57-year-old female with a history of progressive primary right knee osteoarthritis. At this point patient has failed conservative treatment measures and has opted to proceed with a elective right total knee arthroplasty. Hospital course: Details of patient's surgery can be found in operative report. Patient tolerated the procedure well and was subsequently transported to orthopedic floor. Patient's orthopeidc and medical care was provided daily. Patient had daily laboratory tests performed for evaluation of overall blood counts. Patient had daily physical therapy to include strengthening range of motion as well as education with walker ambulation. Patient had daily CPM usage as part of their physical therapy program. Patient was treated with Xarelto for their postoperative DVT prophylaxis during their inpatient stay. Patient was noted to have a relatively uneventful postoperative course. Patient reported satisfactory pain control with oral pain medications by postoperative day 0. Patient showed satisfactory progress with physical therapy. Patient moved steadily through the program and had no difficulty meeting the goals by postoperative day 2. Given patient's otherwise satisfactory course and having met physical therapy goals, plan is to discharge patient home on postoperative day 2. Discharge condition/disposition: Patient will be discharged home in stable condition. Discharge medications: Instructions are given on resumption of patient's normal daily medications per primary care recommendation, in addition patient will be prescribed Elnora 7.5 mg/325 mg, tramadol 50 mg, Colace 100 mg, Eliquis 2.5mg. Discharge instructions: 1. Wound care and infection precautions, keep incision dry and covered while showering, no lotions, creams, moisturizers. No soaking, tubs, pools, hottubs. Do not scrub over the incision. 2. Weight-bear as tolerated] with walker / cane until follow-up. 3. Ice and elevate when necessary. Do not exceed 20 minutes per hour with ice pack. 4. Utilize compression sleeve until seen at first follow up appointment. 5. Visiting nursing care. 6. Home physical therapy [including home CPM]. 7. Pain meds and anticoagulants per prescription. 8. Pain medication has potential to cause constipation. Increase oral fluid and fiber intake. Contact primary care provider if you have not had a bowel movement within 48 hours after discharge 9. No anti-inflammatory medication until discussed at first post operative visit, this including Motrin, Aleve, Mobic, Diclofenac. 10. Follow up in office at 2 weeks postop with Harris Najera PA-C 11. Follow up with your primary care doctor 7-10 days after discharge. 12. Contact [facility] with any questions, . Procedures: Right total knee arthroplasty Patient Condition at Discharge: Good Plan - Discharge Summary Discharge Rx Participant: Yes New Discharge Prescriptions: New Apixaban [Eliquis] 2.5 mg PO BID #30 tab Docusate [Colace] 100 mg PO DAILY #30 capsule HYDROcodone/APAP 7.5-325MG [Elnora 7.5] 1 - 2 each PO Q6HR PRN #56 tab PRN Reason: Pain traMADol HCl [Ultram] 50 mg PO Q6H PRN #28 tab PRN Reason: Pain No Action Montelukast [Singulair] 10 mg PO HS Meloxicam [Mobic] 15 mg PO DAILY Albuterol Inhaler [Ventolin Hfa Inhaler] 1 - 2 puff INHALATION RT-Q6H PRN PRN Reason: Shortness Of Breath Multivitamins, Thera [Multivitamin (formulary)] 1 tab PO DAILY Lisinopril [Zestril] 20 mg PO BID Hydrochlorothiazide [Hydrodiuril] 25 mg PO DAILY Acetaminophen [Tylenol Extra Strength] 1,000 mg PO BID PRN PRN Reason: Pain traMADol HCL [Ultram] 50 mg PO TID PRN PRN Reason: Pain Discharge Medication List Albuterol Inhaler [Ventolin Hfa Inhaler] 1 - 2 puff INHALATION RT-Q6H PRN [History] Meloxicam [Mobic] 15 mg PO DAILY 11/05/17 [History] Montelukast [Singulair] 10 mg PO HS 11/05/17 [History] Acetaminophen [Tylenol Extra Strength] 1,000 mg PO BID PRN 02/12/18 [History] Hydrochlorothiazide [Hydrodiuril] 25 mg PO DAILY 02/12/18 [History] Lisinopril [Zestril] 20 mg PO BID 02/12/18 [History] Multivitamins, Thera [Multivitamin (formulary)] 1 tab PO DAILY 02/12/18 [History ] traMADol HCL [Ultram] 50 mg PO TID PRN 02/12/18 [History] Apixaban [Eliquis] 2.5 mg PO BID #30 tab 02/18/18 [Rx] Docusate [Colace] 100 mg PO DAILY #30 capsule 02/20/18 [Rx] HYDROcodone/APAP 7.5-325MG [Elnora 7.5] 1 - 2 each PO Q6HR PRN #56 tab 02/20/18 [ Rx] traMADol HCl [Ultram] 50 mg PO Q6H PRN #28 tab 02/20/18 [Rx] Follow up Appointment(s)/Referral(s): Alex Najera PAC [PHYSICIAN SENIOR BUSINESS ARCHITECT] - 03/07/18 2:10 pm Activity/Diet/Wound Care/Special Instructions: Orthopedic Discharge Instructions: 1. Wound care and infection precautions, keep incision dry and covered while showering, no lotions, creams, moisturizers. No soaking, pools, hot tubs. Do not scrub over incision. 2. Weight-bear as tolerated with walker / cane until follow-up. 3. Ice and elevate when necessary. Do not exceed 20 minutes per hour with ice pack. 4. Utilize compression sleeve until seen at first follow up appointment. 5. Visiting nursing care. 6. Home physical therapy including home CPM. 7. Pain meds and anticoagulants per prescription. 8. Pain medication has potential to cause constipation. Increase oral fluid and fiber intake. Contact primary care provider if you have not had a bowel movement within 48 hours after discharge. 9. No anti-inflammatory medication until discussed at first post operative visit, this including Motrin, Aleve, Mobic, Diclofenac. 10. Follow up in office at 2 weeks postop with Harris Najera PA-C 11. Follow up with your primary care doctor 7-10 days after discharge. 12. Contact [facility] with any questions, . Discharge Disposition: HOME WITH HOME HEALTH SERVICES
== END 2018-02-20 12:33 | disposition home health service (06) | DRG 470 ==
LOC: 2ORMAIN 11:32 → 3SUR 16:39
PROVIDERS: ADMIT Orthopaedic Surgery; ATTEND Orthopaedic Surgery
PROC: 0SRC0J9 Replacement of Right Knee Joint with Synthetic Substitute, Cemented, Open Approach (ICD-10-PCS; principal; 2018-02-18 13:45)
DX: M17.11 Unilateral primary osteoarthritis, right knee (principal); Z68.42 Body mass index [BMI] 45.0-49.9, adult; E66.01 Morbid (severe) obesity due to excess calories; I10 Essential (primary) hypertension; J45.909 Unspecified asthma, uncomplicated; Z79.1 Long term (current) use of non-steroidal anti-inflammatories (NSAID); Z79.899 Other long term (current) drug therapy; Z80.0 Family history of malignant neoplasm of digestive organs; Z80.3 Family history of malignant neoplasm of breast; Z87.891 Personal history of nicotine dependence
CPT/HCPCS: 85025; 88300

== ENCOUNTER 2018-08-12 06:03 | Observation (INO) | payer BC ==
[2018-08-05 16:49] VITALS: BMI 43.2
--- NOTE | 2018-08-11 08:50 | HP ---
HISTORY AND PHYSICAL CHIEF COMPLAINT: Left knee pain. 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 She notes pain is worse with walking and stairs. She is having night symptoms. She has tried previous medications with only partial temporary relief. PAST MEDICAL HISTORY: Significant for hypertension, arthritis, and asthma. PAST SURGICAL HISTORY: Significant for breast reduction, section, cholecystectomy, and right total knee arthroplasty. CURRENT MEDICATIONS: 1. Hydrochlorothiazide. 2. Lisinopril. 3. Mobic. 4. Singulair. 5. Tramadol. .. ALLERGIES: SULFA and TETRACYCLINE. FAMILY HISTORY: Significant for cancer and heart disease. SOCIAL HISTORY: Negative for current tobacco use; however, she previously smoked. REVIEW OF SYSTEMS: A 16point review of systems otherwise reviewed and is noncontributory. PHYSICAL EXAMINATION: On examination, the patient is approximately 5 foot 5, 288 pounds of endomorphic habitus. HEENT exam is nonfocal. Neck is supple. She has painless passive motion of the left hip. Straight leg raise is negative. Active motion left knee -12 to 95 degrees of flexion. She is tender about the medial joint line. She has mild effusion. Collaterals are stable, Tony's negative, Nan's is equivocal. She has genu varum alignment. Her distal neurovascular exam appears intact in the left lower extremity. Weightbearing, notch, lateral and Merchant views of the left knee obtained in the office show severe medial and patellofemoral compartment narrowing. IMPRESSION: 1. Left knee severe medial and patellofemoral compartment osteoarthrosis. 2. Body mass index of 47.93-morbid obesity. RECOMMENDATIONS: I talked to the patient at length regarding her condition and treatment options. At this point, she is quite limited because of pain related to her osteoarthrosis despite conservative measures. After thorough discussion, she opts to proceed with surgery. We will plan to proceed with left total knee arthroplasty. We will institute DVT prophylaxis postoperatively. Risks and benefits were discussed at length in layman's terms. MMODL / IJN: [id number] /
[~2018-08-12 06:03] MED LIST changes: -HYDROmorphone 0.5 MG/0.5 ML SYRINGE IVP PRN; -MIDAZOLAM 2 MG/2 ML VIAL IV PRN; -ROPIVACAINE 1,100 MG, SODIUM CHLORIDE 0.9% 330 ML MISCELLANE PRN; +ceFAZolin IN SWFI 2 GM/20 ML SYRINGE IVP ONE
[2018-08-12] MEDS: LACTATED RINGERS 1,000 ML IV SCH ×2 (07:00→15:44)
[2018-08-12] MEDS: MIDAZOLAM (PF) 2 MG/2 ML VIAL IV PRN ×2 (07:01→07:23)
[2018-08-12] MEDS ORDERED: TRANEXAMIC ACID 1,000 MG/10 ML VIAL ONE (08:03)
[2018-08-12] MEDS ORDERED: fentaNYL (PF) 50 MCG/ML 2 ML AMP ONE (08:03)
[2018-08-12] MEDS ORDERED: MIDAZOLAM 2 MG/2 ML VIAL ONE (08:03)
[2018-08-12] MEDS ORDERED: PROPOFOL 10 MG/ML 20 ML VIAL IV ONE (08:03)
[2018-08-12] MEDS ORDERED: LIDOCAINE 1% INJ 10MG/ML (20 ML MDV) ONE (08:03)
[2018-08-12] MEDS ORDERED: SODIUM CHLORIDE 0.9% 100 ML BAG ONE (08:03)
[2018-08-12] MEDS ORDERED: ROPIVACAINE 246.25 MG, EPINEPHrine 0.5 MG, KETOROLAC 30 MG, cloNIDine HCL/PF 80 MCG, WA... MISCELLANE ONE ×5 (08:44)
[2018-08-12] MEDS ORDERED: ceFAZolin 3,000 MG in SODIUM CHLORIDE 0.9% IRRIGATIO 3,000 ML IRRIGATION ONE (08:45)
[2018-08-12] MEDS ORDERED: LACTATED RINGERS 1,000 ML IV ONE (08:53)
[2018-08-12] MEDS ORDERED: ROPIVACAINE 1,100 MG, SODIUM CHLORIDE 0.9% 500 ML 330 ML MISCELLANE PRN ×2 (08:57)
--- NOTE | 2018-08-12 08:59 | P.ONQ ---
Anesthesiology Proc Note - PNB - Peripheral Nerve Block Performed Left Adductor Canal Infusion Time Out Performed: Yes Procedure Start Time: :23 Procedure Stop Time: :33 Indication: Acute Post-Operative Pain, Requested by physician Sedation Type: Sedate with meaningful contact maintained Preparation: Sterile Dressing Position: Supine Catheter: Indwelling Needle Types: On-Q Needle Size: 100mm (4") Needle Gauge: 21 Technique: Ultrasound Injectate: 0.5% Ropivacaine (see comment for volume) (ropi .5% 20cc) Blood Aspirated: No Pain Paresthesia on Injection Noted: No Resistance on Injection: Normal Events: Uneventful and Well Tolerated
[2018-08-12] MEDS ORDERED: ONDANSETRON 4 MG/2 ML VIAL IVP PRN (09:44)
[2018-08-12] MEDS ORDERED: HYDROcodone/APAP 7.5-325MG 1 EACH TAB PO PRN (09:44)
[2018-08-12] MEDS ORDERED: HYDROmorphone 0.5 MG/0.5 ML SYRINGE IVP PRN (09:44)
[2018-08-12] MEDS ORDERED: NALOXONE 0.4 MG/ML 1 ML VIAL IV PRN (09:44)
[2018-08-12] MEDS ORDERED: MAGNESIUM HYDROXIDE 2,400 MG/10 ML CUP PO PRN (09:44)
[2018-08-12] MEDS: HYDROmorphone 0.5 MG/0.5 ML SYRINGE IVP PRN ×6 (10:34→18:57)
--- NOTE | 2018-08-12 10:52 | XR ---
EXAMINATION TYPE: XR knee limited LT DATE OF EXAM: 08/12/2018 CLINICAL HISTORY: Left knee pain and arthritis status post total knee replacement. TECHNIQUE: Portable AP and crosstable lateral views of the left knee are obtained immediately postop eratively. COMPARISON: None FINDINGS: Metallic hardware from total left knee arthroplasty is seen and appears satisfactory in al ignment and position. There is evidence of recent surgery with diffuse subcutaneous and soft tissue swelling noted. IMPRESSION: METALLIC HARDWARE FROM TOTAL LEFT KNEE ARTHROPLASTY IS SATISFACTORY IN ALIGNMENT.
--- NOTE | 2018-08-12 12:41 | P.OP ---
Date of Procedure: 08/12/18 Preoperative Diagnosis: Severe left knee tricompartmental osteoarthrosis Postoperative Diagnosis: Same Procedure(s) Performed: Left total knee ostfckqxgaat-zrtphjjt-hmpkfzlzl stabilized Implants: Depuy Attune size 6 narrow cemented femoral component, size 5 cemented tibial component, 9 mm articular surface, 35 mm patella component. This is a posterior stabilized implant. Anesthesia: regional, local, spinal Surgeon: Juancarlos Chakraborty Child Support Specialist #1: Alex Najera Estimated Blood Loss (ml): 50 Pathology: other (Bone fragments) Condition: stable Disposition: PACU Indications for Procedure: The patient is a 58-year-old female who presents with progressive left knee pain secondary osteoarthrosis despite conservative measures. After discussion of the risks and benefits of operative intervention versus continued conservative measures she opted to proceed with surgery. Operative risks to include infection, neurovascular injury, development of blood clots, possible fracture, possible component loosening and possible need for subsequent procedures was discussed. Informed consent was obtained. Operative Findings: as below Description of Procedure: The patient was brought to the operating room, and after induction of spinal anesthesia the left lower extremity was prepped and draped in a normal fashion. The tourniquet was inflated to 270 mm marker. A longitudinal incision extending 3 finger breaths above the superior pole of patella extending to the medial aspect the tibial tubercle was then made. The skin and subcutaneous tissues were divided sharply. Electrocautery was used for hemostasis. A medial parapatellar arthrotomy was performed. The medial soft tissues to include the superficial and deep portions of the medial collateral ligament were elevated subperiosteally. The patella was everted. A portion of the retropatellar fat pad was excised sharply. The anterior cruciate ligament was sacrificed. Blunt retractors were placed. A starting hole was made in the distal femur 1 cm anterior to the posterior cruciate ligament origin. An intramedullary femoral guide was then inserted planning on 5 valgus distal cut with 9 mm distal resection. The cutting block was pinned in place. The distal cut was then made. The posterior referencing sizing guide was utilized. I felt size 6 was most appropriate. 3 of external rotation was built into the system and verified off the trans-epicondylar axis and the posterior condyles. The cutting block was pinned in place. The anterior, posterior, and chamfer cuts then made. Bone fragments were removed. The intercondylar guide was placed and the notch cut was made with a sagittal saw. The bone block was removed in one fragment. The trial component was then placed. There is good anterior to posterior and medial to lateral fit. The distal peg holes were drilled. The trial component was removed. Attention was then paid towards preparing the proximal femur. An extra medullary guide was utilized in line with the tibial shaft and second metatarsal distally. I planned on 2 mm resection from the medial compartment. The cutting block was pinned in place. The proximal tibial cut was then made. The bone was removed in one fragment. The remnants of the medial and lateral menisci were excised at the capsular junction with electrocautery. The tibia sized most appropriately at size 5. The trial femoral and tibial components were placed along with a 9 mm articular surface. I was able to obtain full flexion and extension with internal and external rotation. After several flexion and extension cycles, the tibial rotation was marked with electrocautery line with the medial one third of the tibial tubercle. Attention was then paid towards preparing the patella. A patella reamer was utilized taking stem to 14 mm of bone stock. A good flush cut was made. The patella sized most appropriately 35 mm. The peg holes were drilled. The trial components placed. I had good patellofemoral tracking with no hands technique. The trial components were then removed. The tibia was prepared in the appropriate rotation with appropriate drill and keel punch. The posterior osteophytes were removed with a curved osteotome. The flexion and extension gaps were checked and felt to be symmetric at 9 mm. A trial components were then removed. The posterior soft tissues were injected with ropivacaine. The bony surfaces were prepared with pulsatile lavage and dried. The tibial component was then cemented place was fully seated. Excess cement was removed. The femoral component cemented place and was fully seated. Excess cement was removed. The trial 9 mm articular surface was placed and the knee was put in full extension. The patella component was cemented place. After the cement had sufficiently hardened, the knee was again taken through a range of motion. Again I was able to obtain full flexion and extension with varus and valgus stress. The trial 9 mm articular surface was removed and the final one inserted. This was fully seated. Care was taken to avoid any soft tissue interposition. Pulsatile lavage was again utilized. The medial parapatellar arthrotomy was closed with #2 Ethibond suture. The tourniquet was deflated with approximately 60 total tourniquet time. Final hemostasis was obtained with the cautery. There was minimal bleeding therefore a deep drain was not placed. The subcutaneous tissues were reapproximated with interrupted 2 -0 Vicryl sutures. The skin was reapproximated with 3-0 subcuticular strata fix suture. Skin tape and adhesive was applied. A sterile dressing was applied. The patient was awoken from sedation and transferred to recovery room in good condition. Blood loss was estimated at 50 mL. No complications were incurred. Sponge and needle counts were correct at the end of the case. Harris ELY assisted during the major components of this case to include exposure , bone resection, implantation, and closure.
[2018-08-12] MEDS: traMADol 50 MG TAB PO SCH ×3 (13:05→20:35)
[2018-08-12] MEDS ORDERED: IPRATROPIUM-ALBUTEROL 3 ML NEB INHALATION PRN (14:57)
--- NOTE | 2018-08-12 15:09 | P.CONS ---
History of Present Illness - Reason for Consult Consult date: 08/12/18 - History of Present Illness The patient is a 58 yo F with a PMH of HTN, Asthma, and param knee OA was admitted to the hospital for scheduled total L knee arthroplasty due to progressive symptoms not controlled w/ conservative measures, seen POD # 0. The patient notes she continues to have 6-8/10 pain post-operatively but has been up and walked to the restroom since the procedure. She otherwise denied fever, chills, chest pain, SOB, nausea, vomiting, diarphoresis, dizziness, dysuria, diarrhea, or abdominal pain. Review of Systems Pertinent positives and negatives as discussed in HPI, a complete review of systems was performed and all other systems are negative. Past Medical History Past Medical History: Asthma, Hypertension, Osteoarthritis (OA) Additional Past Medical History / Comment(s): PAIN IN LT KNEE. History of Any Multi-Drug Resistant Organisms: None Reported Past Surgical History: Breast Surgery, Section, Cholecystectomy, Joint Replacement, Tonsillectomy Additional Past Surgical History / Comment(s): C-S X2. BREAST REDUCTION. TOTAL RT KNEE. Past Anesthesia/Blood Transfusion Reactions: No Reported Reaction Past Psychological History: No Psychological Hx Reported Smoking Status: Former smoker Past Alcohol Use History: Occasional Additional Past Alcohol Use History / Comment(s): Smoked from age [age], Past Drug Use History: None Reported - Past Family History Mother Family Medical History: Cancer, GI Bleed Additional Family Medical History / Comment(s): skin and breast cancer Father Family Medical History: Cancer Additional Family Medical History / Comment(s): stomach cancer Medications and Allergies Home Medications Medication Instructions Recorded Confirmed Type Albuterol Inhaler [Ventolin Hfa 1 - 2 puff INHALATION RT-Q6H PRN 11/05/17 History Inhaler] Meloxicam [Mobic] 15 mg PO HS 11/05/17 08/05/18 History Montelukast [Singulair] 10 mg PO HS 11/05/17 08/12/18 History Hydrochlorothiazide [Hydrodiuril] 25 mg PO DAILY 02/12/18 08/12/18 History Lisinopril [Zestril] 20 mg PO BID 02/12/18 08/12/18 History Multivitamins, Thera [Multivitamin 1 tab PO DAILY 02/12/18 08/05/18 History (formulary)] traMADol HCL [Ultram] 50 mg PO TID PRN 02/12/18 08/12/18 History Aspirin [Adult Low Dose Aspirin EC] 81 mg PO DAILY 08/05/18 08/05/18 History Naproxen Sodium [Aleve] 440 mg PO BID 08/05/18 08/05/18 History Allergies Allergy/AdvReac Type Severity Reaction Status Date / Time codeine Allergy Rash/Hives Verified 08/12/18 06:17 Sulfa (Sulfonamide Allergy Rash/Hives Verified 08/12/18 06:17 Antibiotics) tetracycline Allergy Rash/Hives Verified 08/12/18 06:17 Physical Exam Vitals: Vital Signs Temp Pulse Pulse Pulse Resp BP BP 08/12/18 12:55 98 F 81 16 169/79 08/12/18 12:10 78 16 152/91 08/12/18 11:55 69 16 148/68 08/12/18 11:40 75 16 138/64 08/12/18 11:25 72 16 145/65 08/12/18 11:10 74 16 147/66 08/12/18 10:55 68 16 160/72 08/12/18 10:40 78 16 139/59 08/12/18 10:25 63 16 128/60 08/12/18 10:11 97 F L 77 14 134/60 08/12/18 07:38 71 16 127/60 08/12/18 06:33 97.5 F L 73 16 153/69 Pulse Ox 08/12/18 12:55 92 L 08/12/18 12:10 100 08/12/18 11:55 95 08/12/18 11:40 95 08/12/18 11:25 94 L 08/12/18 11:10 96 08/12/18 10:55 95 08/12/18 10:40 96 08/12/18 10:25 100 08/12/18 10:11 100 08/12/18 07:38 99 08/12/18 06:33 97 Intake and Output 08/12/18 08/12/18 08/12/18 06:59 14:59 22:59 Intake Total 2241 Output Total 50 Balance 2191 Intake: IV 1701 Intake, IV Titration 140 Amount Lactated Ringers 1,000 ml 140 @ 70 mls/hr IV .[id number] [facility] Rx#:[id number] Oral 400 Output: Estimated Blood Loss 50 Other: Weight 117.934 kg General: [non toxic], [no distress], [appears at stated age], [morbidly obese] Derm: [no unusual rashes/lesions] [no unusual ecchymoses], [warm], [dry] Head: [atraumatic], [normocephalic], [symmetric] Eyes: [EOMI], [no lid lag], [anicteric sclera], [pupils equal round reactive to light] ENT: [Nose and ears atraumatic], [no thrush], [no pharyngeal erythema] Neck: [No thyromegaly], [no cervical lymphadenopathy], [trachea midline], [ supple] Mouth: [no lip lesion], [mucus membranes moist] Cardiovascular: [S1S2 reg], [no murmur], [positive posterior tibial pulse bilateral], [no edema], [capillary refill less than 2 seconds] Lungs: [CTA bilateral], [no rhonchi, no rales] , [no accessory muscle use] Abdominal: [soft], [ nontender to palpation], [no guarding], [no appreciable organomegaly], [normal bowel sounds] Ext: L leg CHRISTIANO bandage in place to mid thigh, R knee post-surgical scarring, well-healed, no calf tenderness, no edema noted Neuro: [ CN II-XI grossly intact], [light touch intact all 4 extremities], [ finger to nose within normal limits], Psych: [Alert], [oriented], [appropriate affect] Assessment and Plan Plan: Post-operative pain -Will defer to orthopedic service -Currently on [place], Dilaudid, Mobic, and Pain-pump HTN -Will resume home meds Asthma -Patient notes occasional use of Albuterol prn -Will place on Duonebs prn Morbid obesity -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
[2018-08-12] MEDS: ceFAZolin IN SWFI 2 GM/20 ML SYRINGE IVP SCH ×2 (15:45→23:53)
[2018-08-12] MEDS: LISINOPRIL 20 MG TAB PO SCH (20:34)
[2018-08-12] MEDS: HYDROcodone/APAP 7.5-325MG 1 EACH TAB PO PRN (20:34)
[2018-08-12] MEDS: SENNOSIDES-DOCUSATE SODIUM 1 EACH TAB PO SCH (20:35)
[2018-08-13] MEDS: HYDROcodone/APAP 7.5-325MG 1 EACH TAB PO PRN ×4 (01:38→19:03)
[2018-08-13] MEDS: hydrOXYzine PAMOATE 25 MG CAP PO PRN ×2 (01:38→19:05)
[2018-08-13] MEDS: LACTATED RINGERS 1,000 ML IV SCH (05:45)
--- NOTE | 2018-08-13 07:07 | P.PN ---
Progress Note - Text Progress Note Date: 08/13/18 Postoperative day # 1 status post left total knee arthroplasty, under spinal anesthesia, and adductor canal catheter placed for postoperative analgesia, currently at ropivacaine 0.2% 8 mL per hour and continuous infusion, visual analogue scale is 6/10, patient using oral pain medication for breakthrough pain. Assessment and plan= Acute postoperative pain, adductor canal catheter for pain control, we'll continue the same management.
[2018-08-13] MEDS: PANTOPRAZOLE 40 MG TABLET PO SCH (08:08)
[2018-08-13 08:22] LABS: Basophils % (A) 0 %; Eosinophils # (A) 0.1 k/uL (0-0.7); Eosinophils % (A) 1 %; HCT 33.3 % (34.0-46.0); HGB 11.1 gm/dL (11.4-16.0); Lymphocytes # (A) 1.9 k/uL (1.0-4.8); Lymphocytes % (A) 21 %; MCH 32.3 pg (25.0-35.0); MCHC 33.3 g/dL (31.0-37.0); Mean Platelet Volume 8.2; Monocytes # (A) 0.6 k/uL (0-1.0); Monocytes % (A) 7 %; Neutrophils # (A) 6.1 k/uL (1.3-7.7); Neutrophils % (A) 69 %; Platelet Count 164 k/uL (150-450); RBC 3.43 m/uL (3.80-5.40); RDW 13.7 % (11.5-15.5); WBC 8.8 k/uL (3.8-10.6)
[2018-08-13] MEDS: HYDROCHLOROTHIAZIDE 25 MG TAB PO SCH (09:02)
[2018-08-13] MEDS: LISINOPRIL 20 MG TAB PO SCH ×2 (09:02→19:05)
[2018-08-13] MEDS: traMADol 50 MG TAB PO SCH (09:02)
[2018-08-13] MEDS: RIVAROXABAN 10 MG TAB PO SCH (09:02)
--- NOTE | 2018-08-13 11:03 | P.PN ---
Subjective Progress Note Date: 08/13/18 Principal diagnosis: Status post left total knee arthroplasty Patient evaluated today at bedside, her family is present at bedside. She notes some increasing pain after working with therapy. She denies any chest pain or shortness of breath. Objective - Vital Signs Vital signs: Vital Signs Temp 97.5 F L 08/13/18 07:43 Pulse 75 08/13/18 07:43 Resp 16 08/13/18 07:43 BP 172/57 08/13/18 07:43 Pulse Ox 97 08/13/18 07:43 Intake & Output 08/12/18 08/13/18 08/13/18 18:59 06:59 18:59 Intake Total 2241 250 Output Total 50 Balance 2191 250 Weight 117.934 kg Intake: IV 1701 Intake, IV Titration 140 Amount Lactated Ringers 1,000 ml 140 @ 70 mls/hr IV .[id number] [facility] Rx#:[id number] Oral 400 250 Output: Estimated Blood Loss 50 Other: Voiding Method Toilet Toilet - Exam Left lower extremity: Incision is clean, dry, and intact. The exofin fusion tape is in good condition. There is minimal soft tissue swelling and ecchymosis surrounding the medial and lateral aspects of the incision. Calf is soft, no tenderness with palpation. Plantar flexion, dorsiflexion, EHL, FHL are intact. Sensory exam to light touch throughout the extremity is intact, dorsal pedis pulses 2+. - Labs CBC & Chem 7: 08/13/18 07:42 Labs: Abnormal Lab Results - Last 24 Hours (Table) 08/13/18 Range/Units 07:42 RBC 3.43 L (3.80-5.40) m/uL Hgb 11.1 L (11.4-16.0) gm/dL Hct 33.3 L (34.0-46.0) % Assessment and Plan Plan: Assessment: Postop day 1 status post left total knee arthroplasty Plan: Pain control, continue [place] 7.5/325 GI and DVT prophylaxis, continue current medication Wound care instructions discussed Ice and elevate/use of CPM Medical recommendations Encourage incentive spirometer Discharge planning: Likely discharge home tomorrow Time with Patient: Less than 30
--- NOTE | 2018-08-13 14:55 | P.PN ---
Subjective Progress Note Date: 08/13/18 The patient was seen and examined at the bedside. Notes continued 5/10 pain at the LLE. Denied fever, chills, cough, chest pain, SOB, nausea, vomiting, or dizziness. She has been ambulating to the restroom. Objective - Vital Signs Vital signs: Vital Signs Temp 97.6 F 08/13/18 14:49 Pulse 76 08/13/18 14:49 Resp 16 08/13/18 14:49 BP 146/72 08/13/18 14:49 Pulse Ox 94 L 08/13/18 14:49 Intake & Output 08/12/18 08/13/18 08/13/18 18:59 06:59 18:59 Intake Total 2241 250 1000 Output Total 50 Balance 2191 250 1000 Weight 117.934 kg Intake: IV 1701 Intake, IV Titration 140 Amount Lactated Ringers 1,000 ml 140 @ 70 mls/hr IV .[id number] [facility] Rx#:[id number] Oral [id number] [id number] Output: Estimated Blood Loss 50 Other: Voiding Method Toilet Toilet - Exam General: Non-toxic, in no acute distress, appears stated age HEENT: NC/AT, anicteric sclerae, moist conjunctiva, no lid-lag, PERRLA Cardiovascular: S1/S2 wnl, no murmurs, rubs, or gallops Lungs: Clear to auscultation, normal respiratory effort, no accessory muscle use Abdominal: Soft, nontender, non-distended, no guarding, rebound, or rigidity Skin: Warm, dry Extremities: L knee dressing in place, clean, no edema or calf tenderness noted param Psychiatric: Alert and oriented to person, place and time, appropriate affect, Intact judgment Neuro: CN II-XII grossly intact, Strength 5/5 in all extremities except LLE due to pain, Speech intact, Sensation to light touch grossly intact throughout - Labs CBC & Chem 7: 08/13/18 07:42 Labs: Abnormal Lab Results - Last 24 Hours (Table) 08/13/18 Range/Units 07:42 RBC 3.43 L (3.80-5.40) m/uL Hgb 11.1 L (11.4-16.0) gm/dL Hct 33.3 L (34.0-46.0) % Assessment and Plan Plan: Post-operative pain -Will defer to orthopedic service -Currently on [place], Dilaudid, Mobic, and Pain-pump HTN -Will resume home meds Asthma -Patient notes occasional use of Albuterol prn -C/w Duonebs prn Morbid obesity -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
[2018-08-13] MEDS ORDERED: cloNIDine HCL 0.1 MG TAB PO STA (19:57)
[2018-08-13] MEDS: SENNOSIDES-DOCUSATE SODIUM 1 EACH TAB PO SCH (20:14)
[2018-08-14] MEDS: HYDROmorphone 0.5 MG/0.5 ML SYRINGE IVP PRN (00:19)
[2018-08-14] MEDS: HYDROcodone/APAP 7.5-325MG 1 EACH TAB PO PRN ×2 (01:50→07:10)
[2018-08-14] MEDS: LACTATED RINGERS 1,000 ML IV SCH (05:44)
--- NOTE | 2018-08-14 07:00 | P.PN ---
Progress Note - Text Anesthesia POD 2. Patient is status post left under spinal anesthesia with a left adductor canal catheter placed for postoperative pain relief. With ropivacaine 0.2% running at 8 cc's per hour, the patient's VAS is (2, 3). Catheter site is clean dry and intact.
[2018-08-14 07:09] VITALS: BP 155/52; PULSE 81; RESP 17
[2018-08-14] MEDS: RIVAROXABAN 10 MG TAB PO SCH (07:10)
[2018-08-14] MEDS: LISINOPRIL 20 MG TAB PO SCH (07:10)
[2018-08-14] MEDS: HYDROCHLOROTHIAZIDE 25 MG TAB PO SCH (07:10)
[2018-08-14] MEDS: PANTOPRAZOLE 40 MG TABLET PO SCH (07:11)
[2018-08-14 10:03] VITALS: TEMP 98.2
--- NOTE | 2018-08-14 10:48 | P.PN ---
Subjective Progress Note Date: 08/14/18 Principal diagnosis: Status post left total knee arthroplasty Patient evaluated today at bedside, her family is present at bedside. She denies any chest pain or shortness of breath. Objective - Vital Signs Vital signs: Vital Signs Temp 98.2 F 08/14/18 10:02 Pulse 81 08/14/18 07:00 Resp 17 08/14/18 07:00 BP 155/52 08/14/18 07:00 Pulse Ox 94 L 08/14/18 07:00 Intake & Output 08/13/18 08/14/18 08/14/18 18:59 06:59 18:59 Intake Total 1000 296 Balance 1000 296 Weight 117.934 kg Intake: Oral 1000 296 Other: Voiding Method Toilet Toilet Toilet - Exam Left lower extremity: Incision is clean, dry, and intact. The exofin fusion tape is in good condition. There is minimal soft tissue swelling and ecchymosis surrounding the medial and lateral aspects of the incision. Calf is soft, no tenderness with palpation. Plantar flexion, dorsiflexion, EHL, FHL are intact. Sensory exam to light touch throughout the extremity is intact, dorsal pedis pulses 2+. - Labs CBC & Chem 7: 08/13/18 07:42 Assessment and Plan Plan: Assessment: Postop day #2 status post left total knee arthroplasty Plan: Pain control, discharge on [place] 7.5/325 GI and DVT prophylaxis, Eliquis 2.5mg bid for 14 day Wound care instructions discussed Ice and elevate/use of CPM Medical recommendations Encourage incentive spirometer Discharge planning: Discharge home today Time with Patient: Less than 30
--- NOTE | 2018-08-14 10:52 | P.DS ---
Providers Date of admission: 08/12/2018 Expected date of discharge: 08/14/18 Attending physician: Juancarlos Chakraborty Consults: 08/12/18 09:47 Consult Physician Routine Consulting Provider: Teofilo Brown Consult Reason/Comments: Medical Management Do you want consulting provider notified?: Yes Primary care physician: Stated None Hospital Course: Date of admission: 08/12/2018 Date of discharge: 08/14/2018 Admission diagnosis: Status post left total knee arthroplasty Discharge diagnosis: Same Attending physician: Dr. Chakraborty Surgical procedures: Left total knee arthroplasty Brief history: Patient is a 58-year-old female with a history of progressive primary left knee arthritis. At this point patient has failed conservative treatment measures and has opted to proceed with a elective left total knee arthroplasty. Hospital course: Details of patient's surgery can be found in operative report. Patient tolerated the procedure well and was subsequently transported to orthopedic floor. Patient's orthopeidc and medical care was provided daily. Patient had daily laboratory tests performed for evaluation of overall blood counts. Patient had daily physical therapy to include strengthening range of motion as well as education with walker ambulation. Patient had daily CPM usage as part of their physical therapy program. Patient was treated with Xarelto for their postoperative DVT prophylaxis during their inpatient stay. Patient was noted to have a relatively uneventful postoperative course. Patient reported satisfactory pain control with oral pain medications by postoperative day 0. Patient showed satisfactory progress with physical therapy. Patient moved steadily through the program and had no difficulty meeting the goals by postoperative day 2. Given patient's otherwise satisfactory course and having met physical therapy goals, plan is to discharge patient to home on postoperative day 2. Discharge condition/disposition: Patient will be discharged home in stable condition. Discharge medications: Instructions are given on resumption of patient's normal daily medications per primary care recommendation, in addition patient will be prescribed [place] 7.5 mg/325 mg, Colace 100 mg, Elquis 2.5mg. Discharge instructions: 1. Wound care and infection precautions, keep incision dry and covered while showering, no lotions, creams, moisturizers. No soaking, tubs, pools, hottubs. Do not scrub over the incision. 2. Weight-bear as tolerated with walker / cane until follow-up. 3. Ice and elevate when necessary. Do not exceed 20 minutes per hour with ice pack. 4. Utilize compression sleeve until seen at first follow up appointment. 5. Visiting nursing care. 6. Home physical therapy including home CPM. 7. Pain meds and anticoagulants per prescription. 8. Pain medication has potential to cause constipation. Increase oral fluid and fiber intake. Contact primary care provider if you have not had a bowel movement within 48 hours after discharge 9. No anti-inflammatory medication until discussed at first post operative visit, this including Motrin, Aleve, Mobic, Diclofenac. 10. Follow up in office at 2 weeks postop with Harris Najera PA-C 11. Follow up with your primary care doctor 7-10 days after discharge. 12. Contact [facility] with any questions, . Procedures: Left total knee arthroplasty Patient Condition at Discharge: Good Plan - Discharge Summary Discharge Rx Participant: Yes New Discharge Prescriptions: New Apixaban [Eliquis] 2.5 mg PO BID #30 tab Docusate [Colace] 100 mg PO DAILY #30 capsule HYDROcodone/APAP 7.5-325MG [[place] 7.5] 1 - 2 each PO Q6HR PRN #56 tab PRN Reason: Pain Discontinued Naproxen Sodium [Aleve] 440 mg PO BID No Action Montelukast [Singulair] 10 mg PO HS Meloxicam [Mobic] 15 mg PO HS Albuterol Inhaler [Ventolin Hfa Inhaler] 1 - 2 puff INHALATION RT-Q6H PRN PRN Reason: Shortness Of Breath Multivitamins, Thera [Multivitamin (formulary)] 1 tab PO DAILY Lisinopril [Zestril] 20 mg PO BID Hydrochlorothiazide [Hydrodiuril] 25 mg PO DAILY traMADol HCL [Ultram] 50 mg PO TID PRN PRN Reason: Pain Aspirin [Adult Low Dose Aspirin EC] 81 mg PO DAILY Discharge Medication List Albuterol Inhaler [Ventolin Hfa Inhaler] 1 - 2 puff INHALATION RT-Q6H PRN [History] Meloxicam [Mobic] 15 mg PO HS 11/05/17 [History] Montelukast [Singulair] 10 mg PO HS 11/05/17 [History] Hydrochlorothiazide [Hydrodiuril] 25 mg PO DAILY 02/12/18 [History] Lisinopril [Zestril] 20 mg PO BID 02/12/18 [History] Multivitamins, Thera [Multivitamin (formulary)] 1 tab PO DAILY 02/12/18 [History ] traMADol HCL [Ultram] 50 mg PO TID PRN 02/12/18 [History] Aspirin [Adult Low Dose Aspirin EC] 81 mg PO DAILY 08/05/18 [History] Apixaban [Eliquis] 2.5 mg PO BID #30 tab 08/14/18 [Rx] Docusate [Colace] 100 mg PO DAILY #30 capsule 08/14/18 [Rx] HYDROcodone/APAP 7.5-325MG [[place] 7.5] 1 - 2 each PO Q6HR PRN #56 tab 08/14/18 [ Rx] Follow up Appointment(s)/Referral(s): Alex Najera PAC [PHYSICIAN BOLT [employer]] - 08/27/18 3:30 pm None,Stated [Primary Care Provider] - 1 Week Activity/Diet/Wound Care/Special Instructions: Orthopedic Discharge Instructions: 1. Wound care and infection precautions, keep incision dry and covered while showering, no lotions, creams, moisturizers. No soaking, pools, hot tubs. Do not scrub over incision. 2. Weight-bear as tolerated with walker / cane until follow-up. 3. Ice and elevate when necessary. Do not exceed 20 minutes per hour with ice pack. 4. Utilize compression sleeve until seen at first follow up appointment. 5. Pain meds and anticoagulants per prescription. 6. Pain medication has potential to cause constipation. Increase oral fluid and fiber intake. Contact primary care provider if you have not had a bowel movement within 48 hours after discharge. 7. No anti-inflammatory medication until discussed at first post operative visit, this including Motrin, Aleve, Mobic, Diclofenac. 8. Follow up in office at 2 weeks postop with Harris Najera PA-C 9. Follow up with your primary care doctor 7-10 days after discharge. 10. Contact [facility] with any questions, . Discharge Disposition: HOME WITH HOME HEALTH SERVICES
== END 2018-08-14 12:32 | disposition home health service (06) ==
LOC: OR 06:03 → 4SSUR 11:48 → OR 21:44 → 4SSUR 21:49
PROVIDERS: ADMIT Orthopaedic Surgery; ATTEND Orthopaedic Surgery
DX: M17.12 Unilateral primary osteoarthritis, left knee (principal); J45.909 Unspecified asthma, uncomplicated; I10 Essential (primary) hypertension; E66.01 Morbid (severe) obesity due to excess calories; G89.18 Other acute postprocedural pain; Z68.42 Body mass index [BMI] 45.0-49.9, adult; Z79.82 Long term (current) use of aspirin; Z79.899 Other long term (current) drug therapy; Z79.1 Long term (current) use of non-steroidal anti-inflammatories (NSAID); Z88.1 Allergy status to other antibiotic agents; Z88.2 Allergy status to sulfonamides; Z88.5 Allergy status to narcotic agent; Z87.891 Personal history of nicotine dependence; Z90.49 Acquired absence of other specified parts of digestive tract; Z96.651 Presence of right artificial knee joint; Z80.3 Family history of malignant neoplasm of breast; Z80.0 Family history of malignant neoplasm of digestive organs; Z80.8 Family history of malignant neoplasm of other organs or systems; Z83.79 Family history of other diseases of the digestive system
CPT/HCPCS: 27447; 97116; 97161; 85025; 88300; 73560; G0378 ×3; C1713; C1776; C1772; J2250 ×2; J0171; J1100; J2405; J0690 ×2; J2001; J3010; J1885; J2795; J2704; J0735; J1170 ×2

== ENCOUNTER → 2018-11-25 | Outpatient (CLI) | payer BC ==
--- NOTE | 2018-11-25 11:12 | XR ---
EXAMINATION TYPE: XR knee complete bilateral DATE OF EXAM: 11/25/2018 COMPARISON: 02/18/2018 HISTORY: Bilateral knee pain TECHNIQUE: Four views are submitted. FINDINGS: Left knee: There is postsurgical change. Soft tissue ossification adjacent the proximal fibula. No de finite acute fracture or dislocation. Right knee: Postsurgical changes are noted there is soft tissue ossification. Could not exclude subtl e cortical step-off along the medial margin of the right tibial plateau. No dislocation. IMPRESSION: 1. Cannot exclude a subtle cortical cortical step-off and fracture involving the medial margin of the right tibial plateau beneath the prostheses. Correlate with point tenderness.
== END | disposition home or self-care (01) ==
LOC: RADXRYALE 10:33
PROVIDERS: ATTEND Physician Assistant Medical
DX: M25.561 Pain in right knee (principal); M25.562 Pain in left knee

== ENCOUNTER → 2019-02-10 | Outpatient (CLI) | payer BC ==
[2019-02-10 15:08] VITALS: BP 133/77; PULSE 81; RESP 18; TEMP 97.8; BMI 47.2
--- NOTE | 2019-02-10 16:21 | P.HPOB ---
History of Present Illness H&P Date: 02/10/19 Chief Complaint: The patient is here for her routine gynecologic exam and ma mmogram. This is a 58-year-old G3 PIII within LMP of 2013. The patient is here for her routine gynecologic exam. She is complaining of vaginal dryness with sexual intercourse. She was previously prescribed estrogen vaginal cream, but did not use it because of the cost. She would like to have a prescription sent in for this again. She is otherwise without complaints and denies any postmenopausal bleeding. Review of Systems She has lost 4 pounds of the last year. Review of systems is unremarkable. Past Medical History Past Medical History: Asthma, Hypertension Additional Past Medical History / Comment(s): Arthritis. Past OB History: 3 section deliveries. 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 She has been menopausal since 2013. History of Any Multi-Drug Resistant Organisms: None Reported Past Surgical History: Breast Surgery, Section, Cholecystectomy, Tonsillectomy Additional Past Surgical History / Comment(s): 3 sections. Breast reduction surgery. Past Anesthesia/Blood Transfusion Reactions: No Reported Reaction Past Psychological History: No Psychological Hx Reported Smoking Status: Former smoker Past Alcohol Use History: Occasional Additional Past Alcohol Use History / Comment(s): smoked from age [age], Past Drug Use History: None Reported Additional History: She has been since 1986. 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 - Past Family History Mother Family Medical History: Cancer, COPD, GI Bleed Additional Family Medical History / Comment(s): skin and breast cancer Father Family Medical History: Cancer, Diabetes Mellitus, Hypertension Additional Family Medical History / Comment(s): stomach cancer Medications and Allergies Home Medications Medication Instructions Recorded Confirmed Type Meloxicam [Mobic] 15 mg PO HS 11/05/17 02/10/19 History Montelukast [Singulair] 10 mg PO HS 11/05/17 02/10/19 History Hydrochlorothiazide [Hydrodiuril] 25 mg PO DAILY 02/12/18 02/10/19 History Lisinopril [Zestril] 20 mg PO BID 02/12/18 02/10/19 History Multivitamins, Thera [Multivitamin 1 tab PO DAILY 02/12/18 02/10/19 History (formulary)] traMADol HCL [Ultram] 50 mg PO TID PRN 02/12/18 02/10/19 History Aspirin [Adult Low Dose Aspirin EC] 81 mg PO DAILY 08/05/18 02/10/19 History Albuterol Sulfate [Proair Hfa] 1 - 2 puff INHALATION Q6HR PRN 02/10/19 02/10/19 History Allergies Allergy/AdvReac Type Severity Reaction Status Date / Time codeine Allergy Rash/Hives Verified 02/10/19 15:08 Sulfa (Sulfonamide Allergy Rash/Hives Verified 02/10/19 15:08 Antibiotics) tetracycline Allergy Rash/Hives Verified 02/10/19 15:08 Exam Vital Signs Temp Pulse Resp BP Pulse Ox 02/10/19 15:01 97.8 F 81 18 133/77 96 Intake and Output 02/10/19 02/10/19 02/10/19 06:59 14:59 22:59 Other: Weight 128.82 kg Height 5'5", weight 284 pounds, BMI 47.3. This is a well-developed well-nourished obese white female who is alert and oriented times 3 in no acute distress. HEENT: Within normal limits. NECK: Supple without mass or thyromegaly. CHEST AND LUNGS: Clear to auscultation. HEART: Regular rate and rhythm. BREASTS: Are without mass or discharge. Breasts are consistent with breast reduction surgery. AXILLARY EXAM: Negative for adenopathy. BACK: Negative for CVA tenderness. ABDOMEN: Soft, obese, nontender, without palpable masses. PELVIC EXAM: Normal external genitalia with mild atrophy. Cervix and vagina appear normal with mild atrophy. There is no unusual discharge. There is no evidence of prolapse. The uterus is midposition, nongravid size and nontender. There are no palpable adnexal masses or tenderness. Bimanual examination is somewhat limited secondary to her size. RECTAL EXAM: rectovaginal exam is negative for mass or tenderness and is negative for occult blood. EXTREMITIES: Nontender. IMPRESSION: 1. 58-year-old menopausal female with normal gynecologic exam. 2. Vaginal dryness secondary to menopausal genital atrophy resulting in dyspareunia. 3. Previous ascus Pap smear with negative high-risk HPV testing on 11/05/2017. PLAN: 1. Pap smear was deferred. We will plan on repeating the Pap smear with co- testing in one to 2 years. 2. Self breast awareness was discussed with the patient. 3. Screening mammogram will be done today. 4. Trial of Premarin vaginal cream, 1 to 2 g intravaginally twice weekly. The electronic prescription will be sent to [facility] in the [place]. 5. Osteoporosis prevention was discussed. I have stressed the importance of adequate calcium, vitamin D and regular exercise. Recommended amounts of calcium and vitamin D were also discussed. Will plan on doing her 1st bone density test next year. 6. I have recommended screening colonoscopy since she has never had this done. She will discuss this and colorectal cancer screening options with Dr. Nolan. 7. She was advised to return in one year for her annual well woman exam.
--- NOTE | 2019-02-12 11:53 | MM ---
Reason for exam: screening (asymptomatic). Last mammogram was performed 1 year and 6 months ago. History: Family history of breast cancer in mother at age 61. Benign stereotactic core biopsy of the right breast, June 12, 2001. Reductions of both breasts, 1998. Core biopsy of the right breast. Physical Findings: A clinical breast exam by your physician is recommended on an annual basis and results should be correlated with mammographic findings. MG 3D Screening Mammo W/Cad Bilateral CC and MLO view(s) were taken. Prior study comparison: August 19, 2017, bilateral MG screening mammo w CAD. June 28, 2016, bilateral MG screening mammo w CAD. Previous mammotome biopsy in the right breast. No significant changes when compared with prior studies. ASSESSMENT: Benign, BI-RAD 2 RECOMMENDATION: Routine screening mammogram of both breasts in 1 year.
== END | disposition home or self-care (01) ==
LOC: WWCWWP 14:51
PROVIDERS: ATTEND Obstetrics & Gynecology
DX: Z12.31 Encounter for screening mammogram for malignant neoplasm of breast (principal)
CPT/HCPCS: 77063; 77067

== ENCOUNTER → 2019-06-02 | Outpatient (CLI) | payer BC ==
--- NOTE | 2019-06-02 12:05 | CT ---
EXAMINATION TYPE: CT sinus wo con DATE OF EXAM: 06/02/2019 COMPARISON: NONE HISTORY: HEARING LOSS per order. Allergic rhinitis unspecified, chronic sinusitis, and chronic eustac hian salpingitis left side FOR order. CT DLP: 603 mGycm. Automated Exposure Control for Dose Reduction was Utilized. TECHNIQUE: CT scan of the sinuses is performed without contrast, axial images are obtained, coronal r eformatted images are also reviewed. FINDINGS: The paranasal sinuses including the frontal, ethmoid, sphenoid, and maxillary sinuses bila terally are well-aerated without abnormal opacification. The ostiomeatal complex is patent bilateral ly on the coronal images. Visualized portion of mastoid air cells show partial opacification on the left including the level of petrous apex. The globes are intact bilaterally. Generalized cerebral atrophy is seen in visualize d bilateral frontal lobes. IMPRESSION: No acute or chronic paranasal sinus disease.
== END | disposition home or self-care (01) ==
LOC: RADCTMAIN 11:08
PROVIDERS: ATTEND Family Medicine
DX: J32.9 Chronic sinusitis, unspecified (principal); H68.022 Chronic Eustachian salpingitis, left ear; J30.9 Allergic rhinitis, unspecified
CPT/HCPCS: 70486

== ENCOUNTER → 2020-07-20 | Outpatient (CLI) | payer BC ==
[2020-07-20 08:12] VITALS: BP 170/94; PULSE 80; RESP 18; TEMP 97.7
--- NOTE | 2020-07-20 08:54 | P.HPOB ---
History of Present Illness H&P Date: 07/20/20 Chief Complaint: The patient is here for her routine gynecologic exam and ma mmogram. This is a 60-year-old with an LMP of 2013. The patient has been expressing slight vulvar pruritus recently. She denies vaginal discharge. She denies postmenopausal bleeding. Her previous Pap smear on 11/05/2017 showed ASCUS with negative high-risk HPV testing. Review of Systems The patient has gained 10 pounds over the last year. She denies respiratory, cardiac, or G.I. problems. Past Medical History Past Medical History: Asthma, Hypertension Additional Past Medical History / Comment(s): Arthritis. Past OB History: 3 section deliveries. 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 History of Any Multi-Drug Resistant Organisms: None Reported Past Surgical History: Breast Surgery, Section, Cholecystectomy, Tonsillectomy Additional Past Surgical History / Comment(s): 3 sections. Breast reduction surgery. Cataract surgery. Past Anesthesia/Blood Transfusion Reactions: No Reported Reaction Past Psychological History: No Psychological Hx Reported Smoking Status: Former smoker Past Alcohol Use History: Occasional (2 per week) Additional Past Alcohol Use History / Comment(s): smoked from age [age], Past Drug Use History: None Reported Additional History: She has been since 1986. 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 - Past Family History Mother Family Medical History: Cancer, COPD, GI Bleed Additional Family Medical History / Comment(s): skin and breast cancer Father Family Medical History: Cancer, Diabetes Mellitus, Hypertension Additional Family Medical History / Comment(s): stomach cancer Medications and Allergies Home Medications Medication Instructions Recorded Confirmed Type Meloxicam [Mobic] 15 mg PO HS 11/05/17 07/20/20 History Montelukast [Singulair] 10 mg PO HS 11/05/17 07/20/20 History Multivitamins, Thera [Multivitamin 1 tab PO DAILY 02/12/18 07/20/20 History (formulary)] hydroCHLOROthiazide [Hydrodiuril] 25 mg PO DAILY 02/12/18 07/20/20 History lisinopriL [Zestril] 20 mg PO BID 02/12/18 07/20/20 History Aspirin [Adult Low Dose Aspirin EC] 81 mg PO DAILY 08/05/18 07/20/20 History Albuterol Sulfate [Proair Hfa] 1 - 2 puff INHALATION Q6HR PRN 02/10/19 07/20/20 History Estrogens, Conjugated Cream 1 gram VAGINAL DIRECTED #1 tube 02/10/19 07/20/20 Rx [Premarin Cream] Acetaminophen Tab [Tylenol Tab] 500 mg PO Q4H 07/20/20 07/20/20 History Ascorbic Acid [Vitamin C] 1,000 mg PO DAILY 07/20/20 07/20/20 History Calcium Carbonate [Calcium] 600 mg PO DAILY 07/20/20 07/20/20 History Cetirizine HCl [Zyrtec] 10 mg PO DAILY 07/20/20 07/20/20 History Cholecalciferol [Vitamin D3 (25 2,000 unit PO DAILY 07/20/20 07/20/20 History Mcg = 1000 Iu)] Cyclobenzaprine [Flexeril] 5 mg PO HS 07/20/20 07/20/20 History Turmeric Root Extract [Turmeric] 500 mg PO DAILY 07/20/20 07/20/20 History Vitamin B Complex 1 each PO DAILY 07/20/20 07/20/20 History Allergies Allergy/AdvReac Type Severity Reaction Status Date / Time codeine Allergy Rash/Hives Verified 02/10/19 15:08 Sulfa (Sulfonamide Allergy Rash/Hives Verified 02/10/19 15:08 Antibiotics) tetracycline Allergy Rash/Hives Verified 02/10/19 15:08 Exam Vital Signs Temp Pulse Resp BP Pulse Ox 07/20/20 08:08 97.7 F 80 18 170/94 98 Intake and Output 07/19/20 07/20/20 07/20/20 22:59 06:59 14:59 Other: Weight 134.263 kg Height 5 feet 4-1/2 inches, weight 294 pounds, BMI 50.0. This is a well-developed well-nourished heavyset white female who is alert and oriented times 3 in no acute distress. HEENT: Within normal limits. NECK: Supple without mass or thyromegaly. CHEST AND LUNGS: Clear to auscultation. HEART: Regular rate and rhythm. BREASTS: Are without mass or discharge. AXILLARY EXAM: Negative for adenopathy. BACK: Negative for CVA tenderness. ABDOMEN: Soft, obese, nontender, without palpable masses. PELVIC EXAM: Normal external genitalia with mild atrophy. Cervix and vagina appe ar normal with mild atrophy. There is a thick slightly chunky, white discharge in the back of the vagina. There is no evidence of prolapse. The uterus is midposition, nongravid size and nontender. There are no palpable adnexal masses or tenderness. Bimanual examination is somewhat limited secondary to her size. RECTAL EXAM: rectovaginal exam is negative for mass or tenderness and is negative for occult blood. EXTREMITIES: Nontender. IMPRESSION: 1. 60-year-old menopausal female with slight vulvar pruritus and white discharge in the vagina consistent with Shira vaginitis. 2. Previous ASCUS Pap smear with negative high-risk HPV testing on 11/05/2017. 3. Elevated blood pressure with history of chronic hypertension. PLAN: 1. Pap smear cotest was performed. 2. Self breast awareness was discussed with the patient. 3. Screening mammogram will be done today. 4. She is aware of her elevated blood pressure. I have recommended that she check her blood pressure at home on a regular basis since she does have a blood pressure cuff. She will follow up with her PCP for elevated blood pressures. 5. Affirm vaginitis panel was obtained from the vagina. Diflucan 150 mg by mouth 1 with 1 refill. The prescription will be sent electronically to [facility]. 6. She is requesting a prescription for Premarin vaginal cream which she has used for vaginal dryness. The electronic prescription will be sent to [facility]. 7.Osteoporosis prevention was discussed. I have stressed the importance of adequate calcium, vitamin D and regular exercise. Recommended amounts of ca lcium and vitamin D were also discussed. I have recommended bone density screening. She states she would like to do this next year. 8. She has not had a colonoscopy. She states she has done Cologuard testing through her PCP. She'll continue to follow up with her PCP for colorectal cancer screening. 9. She was advised to return in one year for her annual well woman exam.
--- NOTE | 2020-07-25 08:59 | MM ---
Reason for exam: screening (asymptomatic). Last mammogram was performed 1 year and 5 months ago. History: Patient is postmenopausal. Family history of breast cancer in mother at age 61. Benign stereotactic core biopsy of the right breast, June 12, 2001. Reductions of both breasts, 1998. Core biopsy of the right breast. Physical Findings: A clinical breast exam by your physician is recommended on an annual basis and results should be correlated with mammographic findings. MG Screening Mammo w CAD Bilateral CC and MLO view(s) were taken. XCCL view(s) were taken of the left breast. Prior study comparison: February 10, 2019, bilateral MG 3d screening mammo w/cad. August 19, 2017, bilateral MG screening mammo w CAD. The breast tissue is almost entirely fat. No significant changes when compared with prior studies. ASSESSMENT: Benign, BI-RAD 2 RECOMMENDATION: Routine screening mammogram of both breasts in 1 year.
== END | disposition home or self-care (01) ==
LOC: WWCWWP 07:40
PROVIDERS: ATTEND Obstetrics & Gynecology
DX: Z12.31 Encounter for screening mammogram for malignant neoplasm of breast (principal)
CPT/HCPCS: 77067

== ENCOUNTER → 2020-11-23 | Outpatient (CLI) | payer OTHER ==
--- NOTE | 2020-11-23 14:48 | XR ---
EXAMINATION TYPE: XR foot complete LT DATE OF EXAM: 11/23/2020 COMPARISON: NONE HISTORY: Pain TECHNIQUE: Three views are submitted. FINDINGS: There is deformity of the distal fibula. Arthropathy of the tarsometatarsal joints. There is calcific ations along the Achilles tendon as well as the plantar aponeurosis. Calcaneal spurs are seen. Concen tric narrowing of the first MTP joint with no erosive changes. IMPRESSION: 1. Oblique fracture distal fibula. 2. Arthropathy. Pattern could be associated with osteoarthritis or gout correlate clinically. 3. Calcaneal spurs.
--- NOTE | 2020-11-23 14:50 | XR ---
EXAMINATION TYPE: XR ankle complete LT DATE OF EXAM: 11/23/2020 COMPARISON: NONE HISTORY: Pain FINDINGS: Three views of the ankle demonstrate the ankle mortise to be intact and some minimal asymmetric.. The re is calcifications along the soft tissue the plantar neurosis as well as the Achilles insertion. Ca lcaneal spurs are noted. Extensive soft tissue swelling laterally. Arthropathy of the tarsometatarsal junction. Oblique minimally displaced fracture of the distal fibula. IMPRESSION: 1. Oblique minimally displaced fracture distal fibula. There may be minimally asymmetric appearance o f the ankle mortise.
== END | disposition home or self-care (01) ==
LOC: RADXRYALE 14:19
PROVIDERS: ATTEND Physician Assistant Medical
DX: S82.432A Displaced oblique fracture of shaft of left fibula, initial encounter for closed fracture (principal); M19.072 Primary osteoarthritis, left ankle and foot; M77.32 Calcaneal spur, left foot

== ENCOUNTER 2021-05-21 19:40 | Emergency (ER) | payer OTHER ==
--- NOTE | 2021-05-21 21:12 | XR ---
EXAMINATION TYPE: XR chest 2V DATE OF EXAM: 05/21/2021 COMPARISON: NONE HISTORY: Cough TECHNIQUE: 2 views FINDINGS: Heart and mediastinum are normal. Lungs are clear. Diaphragm is normal. Bony thorax is inta ct. IMPRESSION: Normal chest.
[2021-05-21 21:38] LABS: Basophils # (A) 0.1 k/uL (0-0.2); Basophils % (A) 1 %; Eosinophils # (A) 0.1 k/uL (0-0.7); Eosinophils % (A) 1 %; HCT 45.7 % (34.0-46.0); Lymphocytes # (A) 1.5 k/uL (1.0-4.8); Lymphocytes % (A) 18 %; MCH 32.9 pg (25.0-35.0); MCHC 32.8 g/dL (31.0-37.0); Mean Platelet Volume 8.2; Monocytes # (A) 0.7 k/uL (0-1.0); Monocytes % (A) 8 %; Neutrophils # (A) 5.9 k/uL (1.3-7.7); Neutrophils % (A) 70 %; Platelet Count 248 k/uL (150-450); RBC 4.57 m/uL (3.80-5.40); RDW 13.1 % (11.5-15.5); WBC 8.4 k/uL (3.8-10.6)
[2021-05-21 21:48] LABS: ALT 94 U/L (4-34); AST 73 U/L (14-36); African American GFR (CKD) >90 (>60 ml/min/1.73 sqM); Albumin 4.7 g/dL (3.5-5.0); Alkaline Phosphatase 66 U/L (38-126); Anion Gap 8 mmol/L; Blood Urea Nitrogen 18 mg/dL (7-17); Calcium 10.1 mg/dL (8.4-10.2); Carbon Dioxide 27 mmol/L (22-30); Chloride 100 mmol/L (98-107); Glucose 116 mg/dL (74-99); Non-African American GFR(CKD) >90 (>60 ml/min/1.73 sqM); Potassium 4.2 mmol/L (3.5-5.1); Sodium 135 mmol/L (137-145); Total Bilirubin 0.6 mg/dL (0.2-1.3); Total Protein 7.7 g/dL (6.3-8.2)
[2021-05-21] MEDS ORDERED: CASIRIVIMAB (REGN10933) (EUA) 600 MG, IMDEVIMAB (REGN10987) (EUA) 600 MG in SODIUM CHLO... IVPB ONE (22:15)
[2021-05-21] MEDS ORDERED: SODIUM CHLORIDE 0.9% 50 ML IVPB ONE (22:15)
[2021-05-21 22:40] VITALS: RESP 18
--- NOTE | 2021-05-21 22:42 | ED ---
URI HPI - General Chief Complaint: Upper Respiratory Infection Stated Complaint: Covid+,OLIVER Time Seen by Provider: 05/21/21 21:54 Source: patient, RN notes reviewed Mode of arrival: ambulatory Limitations: no limitations - History of Present Illness Initial Comments: A she is a 61-year-old female that presents to emergency department complaining of upper stretch accident as well as a cough for the past with days patient was she did test positive for Covid. She does meet criteria for monoclonal antibody therapy. She denied any other issues at this time. She denied chest pain first breath headache nausea vomiting diarrhea constipation fever fatigue chills. - Related Data Home Medications Medication Instructions Recorded Confirmed Meloxicam [Mobic] 15 mg PO HS 11/05/17 07/20/20 Montelukast [Singulair] 10 mg PO HS 11/05/17 07/20/20 Multivitamins, Thera [Multivitamin 1 tab PO DAILY 02/12/18 07/20/20 (formulary)] hydroCHLOROthiazide [Hydrodiuril] 25 mg PO DAILY 02/12/18 07/20/20 lisinopriL [Zestril] 20 mg PO BID 02/12/18 07/20/20 Aspirin [Adult Low Dose Aspirin EC] 81 mg PO DAILY 08/05/18 07/20/20 Albuterol Sulfate [Proair Hfa] 1 - 2 puff INHALATION Q6HR PRN 02/10/19 07/20/20 Acetaminophen Tab [Tylenol Tab] 500 mg PO Q4H 07/20/20 07/20/20 Ascorbic Acid [Vitamin C] 1,000 mg PO DAILY 07/20/20 07/20/20 Calcium Carbonate [Calcium] 600 mg PO DAILY 07/20/20 07/20/20 Cetirizine HCl [Zyrtec] 10 mg PO DAILY 07/20/20 07/20/20 Cholecalciferol [Vitamin D3 (25 2,000 unit PO DAILY 07/20/20 07/20/20 Mcg = 1000 Iu)] Cyclobenzaprine [Flexeril] 5 mg PO HS 07/20/20 07/20/20 Turmeric Root Extract [Turmeric] 500 mg PO DAILY 07/20/20 07/20/20 Vitamin B Complex 1 each PO DAILY 07/20/20 07/20/20 Previous Rx's Medication Instructions Recorded Estrogens, Conjugated Cream 1 gram VAGINAL DIRECTED #1 tube 07/20/20 [Premarin Vaginal Cream] Fluconazole [Diflucan] 150 mg PO ONCE #1 tab 07/20/20 metroNIDAZOLE [Flagyl] 500 mg PO BID 7 Days #14 tab 08/02/20 Allergies Allergy/AdvReac Type Severity Reaction Status Date / Time codeine Allergy Rash/Hives Verified 05/21/21 20:52 Sulfa (Sulfonamide Allergy Rash/Hives Verified 05/21/21 20:52 Antibiotics) tetracycline Allergy Rash/Hives Verified 05/21/21 20:52 Review of Systems ROS Statement: Those systems with pertinent positive or pertinent negative responses have been documented in the HPI. ROS Other: All systems not noted in ROS Statement are negative. Past Medical History Past Medical History: Asthma, Hypertension Additional Past Medical History / Comment(s): Arthritis. Past OB History: 3 section deliveries. 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 History of Any Multi-Drug Resistant Organisms: None Reported Past Surgical History: Breast Surgery, Section, Cholecystectomy, Tonsillectomy Additional Past Surgical History / Comment(s): 3 sections. Breast reduction surgery. Cataract surgery. Past Anesthesia/Blood Transfusion Reactions: No Reported Reaction Past Psychological History: No Psychological Hx Reported Smoking Status: Former smoker Past Alcohol Use History: Occasional Past Drug Use History: None Reported - Past Family History Mother Family Medical History: Cancer, COPD, GI Bleed Additional Family Medical History / Comment(s): skin and breast cancer Father Family Medical History: Cancer, Diabetes Mellitus, Hypertension Additional Family Medical History / Comment(s): stomach cancer General Exam Limitations: no limitations General appearance: alert, in no apparent distress, obese Head exam: Present: atraumatic, normocephalic, normal inspection Eye exam: Present: normal appearance, PERRL, EOMI. Absent: scleral icterus, conjunctival injection, periorbital swelling ENT exam: Present: normal exam, mucous membranes moist Neck exam: Present: normal inspection Respiratory exam: Present: normal lung sounds bilaterally. Absent: respiratory distress, wheezes, rales, rhonchi, stridor Cardiovascular Exam: Present: regular rate, normal rhythm, normal heart sounds. Absent: systolic murmur, diastolic murmur, rubs, gallop, clicks GI/Abdominal exam: Present: soft, normal bowel sounds. Absent: distended, tenderness, guarding, rebound, rigid Extremities exam: Present: normal inspection, full ROM, normal capillary refill. Absent: tenderness, pedal edema, joint swelling, calf tenderness Neurological exam: Present: alert, oriented X3 Psychiatric exam: Present: normal affect, normal mood Skin exam: Present: warm, dry, intact, normal color. Absent: rash Course Vital Signs 05/21/21 20:48 Temperature 98.2 F Pulse Rate 78 Respiratory 20 Rate Blood Pressure 206/90 O2 Sat by Pulse 94 L Oximetry Medical Decision Making - Medical Decision Making 61-year-old female Covid-positive. Basic labs, chest x-ray ordered. Labs unremarkable. Chest x-ray negative for any acute cardio pointer process. Patient wished undergo monoclonal antibody infusion. Patient discharge home after infusion. Case discussed with Dr. Sandoval him a patient can discharge home after IV infusion. - Lab Data Result diagrams: 05/21/21 21:22 05/21/21 21:22 Lab Results 05/21/21 05/21/21 Range/Units 21:22 21:22 WBC 8.4 (3.8-10.6) k/uL RBC 4.57 (3.80-5.40) m/uL Hgb 15.0 (11.4-16.0) gm/dL Hct 45.7 (34.0-46.0) % MCV 100.0 (80.0-100.0) fL MCH 32.9 (25.0-35.0) pg MCHC 32.8 (31.0-37.0) g/dL RDW 13.1 (11.5-15.5) % Plt Count 248 (150-450) k/uL MPV 8.2 Neutrophils % 70 % Lymphocytes % 18 % Monocytes % 8 % Eosinophils % 1 % Basophils % 1 % Neutrophils # 5.9 (1.3-7.7) k/uL Lymphocytes # 1.5 (1.0-4.8) k/uL Monocytes # 0.7 (0-1.0) k/uL Eosinophils # 0.1 (0-0.7) k/uL Basophils # 0.1 (0-0.2) k/uL Sodium 135 L (137-145) mmol/L Potassium 4.2 (3.5-5.1) mmol/L Chloride 100 (98-107) mmol/L Carbon Dioxide 27 (22-30) mmol/L Anion Gap 8 mmol/L BUN 18 H (7-17) mg/dL Creatinine 0.70 (0.52-1.04) mg/dL Est GFR (CKD-EPI)AfAm >90 (>60 ml/min/1.73 sqM) Est GFR (CKD-EPI)NonAf >90 (>60 ml/min/1.73 sqM) Glucose 116 H (74-99) mg/dL Calcium 10.1 (8.4-10.2) mg/dL Total Bilirubin 0.6 (0.2-1.3) mg/dL AST 73 H (14-36) U/L ALT 94 H (4-34) U/L Alkaline Phosphatase 66 (38-126) U/L Total Protein 7.7 (6.3-8.2) g/dL Albumin 4.7 (3.5-5.0) g/dL - Radiology Data Radiology results: report reviewed, image reviewed Chest x-ray: Normal chest. Disposition Clinical Impression: COVID Disposition: HOME SELF-CARE Condition: Stable Instructions (If sedation given, give patient instructions): Coronavirus Disease 2019 (COVID-19) Additional Instructions: Please return to the Emergency Department if symptoms worsen or any other concerns. Follow-up with primary care 1-2 days. Quarantine per CDC guidelines. Take Tylenol and Motrin alternating every 3 hours for fever. Keep any rest increase fluids. Is patient prescribed a controlled substance at d/c from ED?: No Referrals: Kelly Carlisle, PAC [Primary Care Provider] - 1-2 days Time of Disposition: 22:41
[2021-05-22 01:01] VITALS: BP 148/89; PULSE 79; TEMP 98.6
== END 2021-05-21 23:43 | disposition home or self-care (01) ==
LOC: EC 19:40
DX: U07.1 COVID-19 (principal); I10 Essential (primary) hypertension; J45.909 Unspecified asthma, uncomplicated; M19.90 Unspecified osteoarthritis, unspecified site; Z79.1 Long term (current) use of non-steroidal anti-inflammatories (NSAID); Z79.82 Long term (current) use of aspirin; Z87.891 Personal history of nicotine dependence; Z79.899 Other long term (current) drug therapy; Z88.2 Allergy status to sulfonamides; Z90.49 Acquired absence of other specified parts of digestive tract; Z83.79 Family history of other diseases of the digestive system; Z83.3 Family history of diabetes mellitus; Z82.49 Family history of ischemic heart disease and other diseases of the circulatory system; Z80.3 Family history of malignant neoplasm of breast
CPT/HCPCS: 96365 ×2; 99284 ×2; 36415; 80053; 85025; 71046; M0243; Q0243

== ENCOUNTER → 2021-12-01 | Outpatient (CLI) | payer OTHER ==
--- NOTE | 2021-12-01 13:01 | US ---
EXAMINATION TYPE: US liver DATE OF EXAM: 12/01/2021 COMPARISON: NONE CLINICAL HISTORY: R94.5 Abnormal LFT. abn labs, no symptom, large habitus EXAM MEASUREMENTS: Liver Length: 18.5 cm Gallbladder Wall: Surgically absent CBD: 0.5 cm Right Kidney: 11.4 x 4.6 x 4.1 cm Pancreas: wnl Liver: difficult to penetrate, upper limits of normal for size Gallbladder: Surgically absent Evidence for sonographic Geronimo's sign: no CBD: wnl Right Kidney: wnl IMPRESSION: Hepatic steatosis.
== END | disposition home or self-care (01) ==
LOC: RADUSWWP 08:35
PROVIDERS: ATTEND Family Medicine
DX: K76.0 Fatty (change of) liver, not elsewhere classified (principal)
CPT/HCPCS: 76705

== ENCOUNTER → 2022-06-29 | Outpatient (CLI) | payer OTHER ==
--- NOTE | 2022-07-02 08:41 | MM ---
Reason for Exam: Screening (asymptomatic). Last mammogram was performed 2 year(s) and 0 month(s) ago. Patient History: Menarche at age 10. First Full-Term at age 19. Postmenopausal. 1998, Bilateral Reduction. Core Biopsy on the Right side. 06/12/2001, Benign Stereotactic Core Biopsy on the right side. Mother had breast cancer, age 61. Risk Values: Rachel 5 year model risk: 4.9%. NCI Lifetime model risk: 19.6%. Prior Study Comparison: 08/19/2017 Bilateral Screening Mammogram, [facility]. 02/10/2019 Bilateral Screening Mammogram, [facility]. 07/20/2020 Bilateral Screening Mammogram, [facility]. Tissue Density: The breast tissue is almost entirely fat. Findings: Analyzed By CAD. There is no suspicious group of microcalcifications or new suspicious mass in either breast. Overall Assessment: Negative, BI-RAD 1 Management: Screening Mammogram of both breasts in 1 year. A clinical breast exam by your physician is recommended on an annual basis and results should be correlated with mammographic findings. Electronically signed and approved by: David Lowery M.D. Radiologis
== END | disposition home or self-care (01) ==
LOC: RADMAMWWP 09:41
PROVIDERS: ATTEND Family Medicine
DX: Z12.31 Encounter for screening mammogram for malignant neoplasm of breast (principal); Z78.0 Asymptomatic menopausal state; Z80.3 Family history of malignant neoplasm of breast
CPT/HCPCS: 77063; 77067

== ENCOUNTER → 2022-07-23 | Outpatient (CLI) | payer OTHER ==
--- NOTE | 2022-07-23 10:21 | CT ---
EXAMINATION TYPE: CT sinus wo con DATE OF EXAM: 07/23/2022 COMPARISON: 06/02/2019 HISTORY: 62-year-old female J32.9, Chronic sinusitis, frontal sinus headaches CT DLP: 489.60 mGycm Automated exposure control for dose reduction was used. TECHNIQUE: Noncontrast axial views of the paranasal sinuses were obtained. Coronal and sagittal refor matted images were obtained from the axial views for evaluation of nasal cavity, osteomeatal complex and skull base integrity. FINDINGS: PARANASAL SINUSES: Partial opacification of several anterior left ethmoid air cells. Otherwise, frontal, sphenoid, and maxillary sinuses are well pneumatized. There is no air-fluid level. Reactive johnny- osteogenesis is not seen. There is no destruction of the osseous maza of the paranasal sinuses. THE NASAL CAVITY: The osteomeatal complexes are patent. Slight leftward nasal septal deviation. Moderate generalized cerebral cortical volume loss in the visualized brain. Trapped fluid mid and inferior right mastoid air cells. Bilateral middle ear cavities are well pneuma tized. Reformatted images confirm above findings. IMPRESSION: 1. Mild chronic left ethmoid sinus disease. 2. No leftward nasal septal deviation. 3. Fluid in the right mid and inferior mastoid air cells. Correlate for any mastoid pain to exclude m astoiditis.
== END | disposition home or self-care (01) ==
LOC: RADCTMAIN 08:41
PROVIDERS: ATTEND Family Medicine
DX: J32.2 Chronic ethmoidal sinusitis (principal); J32.9 Chronic sinusitis, unspecified
CPT/HCPCS: 70486

== ENCOUNTER → 2022-07-27 | Outpatient (CLI) | payer OTHER ==
--- NOTE | 2022-07-27 10:42 | XR ---
EXAMINATION TYPE: XR KUB DATE OF EXAM: 07/27/2022 9:30 AM CLINICAL HISTORY: Right lower calculus TECHNIQUE: Single supine KUB image of the abdomen is obtained. COMPARISON: None. FINDINGS: Scattered gas is seen in non-distended small bowel loops. Gas and fecal material is seen in non-distended colon. There is no visceromegaly or pneumoperitoneum. There are 2 subtle calcific dens ities projecting over the lower pole the right kidney. There are several calcifications projecting ov er the pelvis bilaterally which favor phleboliths.. The lung bases are not visualized. There are surg ical clips over the right upper quadrant. There are degenerative changes throughout the spine, but no osseous destructive lesions. IMPRESSION: Subtle calcifications projecting over the lower pole the right kidney. Calcifications in the pelvis f avor phleboliths. Degenerative changes of the spine. Nonobstructive bowel gas pattern.
== END | disposition home or self-care (01) ==
LOC: RADXRMAIN 09:12
PROVIDERS: ATTEND Urology
DX: N20.2 Calculus of kidney with calculus of ureter (principal)
CPT/HCPCS: 74018

== ENCOUNTER → 2022-08-20 | Outpatient (CLI) | payer OTHER ==
--- NOTE | 2022-08-20 12:23 | XR ---
EXAMINATION TYPE: XR KUB DATE OF EXAM: 08/20/2022 11:30 AM CLINICAL HISTORY: Follow-up right ureteral stone TECHNIQUE: Supine KUB images of the abdomen are obtained. COMPARISON: 07/27/2022. FINDINGS: The previously noted calcific densities projecting over the right kidney are no longer pres ent. Multiple pelvic calcifications are stable and presumed phleboliths. Scattered gas is seen in non -distended small bowel loops. Gas and fecal material is seen in non-distended colon. There is no visc eromegaly or pneumoperitoneum. The lung bases are clear and there are no acute osseous abnormalities. There is a stable ossific density just lateral to the L5 transverse process which may relate to old healed fracture. IMPRESSION: No suspicious urinary calcifications.
== END | disposition home or self-care (01) ==
LOC: RADXRYALE 11:07
PROVIDERS: ATTEND Urology
DX: N20.1 Calculus of ureter (principal)
CPT/HCPCS: 74018

== ENCOUNTER → 2023-07-02 | Outpatient (CLI) | payer OTHER ==
--- NOTE | 2023-07-03 16:08 | MM ---
Reason for Exam: Screening (asymptomatic). Last screening mammogram was performed 12 month(s) ago. Patient History: Menarche at age 10. First Full-Term at age 19. Postmenopausal. 1998, Bilateral Reduction. Core Biopsy on the Right side. 06/12/2001, Benign Stereotactic Core Biopsy on the right side. Mother had breast cancer, age 61. Risk Values: Rachel 5 year model risk: 5.1%. NCI Lifetime model risk: 19.0%. Prior Study Comparison: 02/10/2019 Bilateral Screening Mammogram, [facility]. 07/20/2020 Bilateral Screening Mammogram, [facility]. 06/29/2022 Bilateral MG 3D screening mammo w/cad, [facility]. Tissue Density: There are scattered fibroglandular densities. Findings: Analyzed By CAD. Pattern appears symmetrical and stable. There are extensive small round and punctate calcifications scattered bilaterally. No suspicious group of calcifications is evident. No significant interval change. No suspicious groups of microcalcifications, spiculated or lobular masses, architectural distortion or other secondary signs of malignancy are mammographically apparent. Overall Assessment: Benign, BI-RAD 2 Management: Screening Mammogram of both breasts in 1 year. A negative mammogram report should not preclude additional follow up of suspicious palpable abnormalities. Patient should continue monthly self breast exam. A clinical breast exam by your physician is recommended on an annual basis and results should be correlated with mammographic findings. Electronically signed and approved by: Stanley Shah D.O. Radiologis
== END | disposition home or self-care (01) ==
LOC: RADMAMWWP 08:27
PROVIDERS: ATTEND Family Medicine
DX: Z12.31 Encounter for screening mammogram for malignant neoplasm of breast (principal); Z78.0 Asymptomatic menopausal state; Z80.3 Family history of malignant neoplasm of breast
CPT/HCPCS: 77063; 77067

== ENCOUNTER → 2023-08-06 | Outpatient (CLI) | payer OTHER ==
--- NOTE | 2023-08-06 18:27 | XR ---
EXAMINATION TYPE: XR lumbosacral spine min 4V DATE OF EXAM: 08/06/2023 5:09 PM CLINICAL INDICATION:Female, 63 years old with history of [id number] DDD; [facility] COMPARISON: 8 08/17/2016. TECHNIQUE: XR lumbosacral spine min 4V - Frontal, lateral , bilateral oblique and coned in L5-S1 late ral views of the spine. FINDINGS: No evidence of any acute osseous pathology. No evidence of loss of vertebral body height i s seen. There is normal alignment of the lumbar vertebral bodies. Scattered disc space narrowing. Mul tilevel marginal osteophyte formation throughout the visualized spine. There is facet joint arthropat hy throughout the spine. No foraminal stenosis worse at L4-L5 and L5-S1 with at least moderate. Right upper quadrant vasectomy clips. Mild scattered atherosclerosis of the arterial vasculature. IMPRESSION: 1. No acute fracture. 2. Moderate multilevel disc degeneration.
== END | disposition home or self-care (01) ==
LOC: RADXRYALE 16:57
PROVIDERS: ATTEND Physician Assistant Medical
DX: M51.36 Other intervertebral disc degeneration, lumbar region (principal)
CPT/HCPCS: 72110

== ENCOUNTER → 2024-07-16 | Outpatient (CLI) | payer OTHER ==
--- NOTE | 2024-07-17 12:15 | MM ---
Reason for Exam: Screening (asymptomatic). Last screening mammogram was performed 12 month(s) ago. Patient History: Menarche at age 10. First Full-Term at age 19. Postmenopausal. 1998, Bilateral Reduction. Core Biopsy on the Right side. 06/12/2001, Benign Stereotactic Core Biopsy on the right side. Mother had breast cancer, age 61. Risk Values: Rachel 5 year model risk: 5.2%. NCI Lifetime model risk: 18.4%. Prior Study Comparison: 07/20/2020 Bilateral Screening Mammogram, [facility]. 06/29/2022 Bilateral MG 3D screening mammo w/cad, [facility]. 07/02/2023 Bilateral MG 3D screening mammo w/cad, [facility]. Tissue Density: The breasts are almost entirely fatty. Findings: Analyzed By CAD. There is no suspicious group of microcalcifications or new suspicious mass in either breast. Overall Assessment: Benign, BI-RAD 2 Management: Screening Mammogram of both breasts in 1 year. . Patient should continue monthly self-breast exams. A clinical breast exam by your physician is recommended on an annual basis. This exam should not preclude additional follow-up of suspicious palpable abnormalities. Note on Rachel scores and lifetime risk: 1. A Rachel score greater than 3% is considered moderate risk. If this is the case, consider specialist referral to assess eligibility for a risk reducing agent. 2. If overall lifetime risk for the development of breast cancer is 20% or higher, the patient may qualify for future screening with alternating mammogram and breast MRI. [facility], , 07/17/2024 12:13 PM. Electronically signed and approved by: David Lowery M.D. Radiologis
== END | disposition home or self-care (01) ==
LOC: RADMAMWWP 11:22
PROVIDERS: ATTEND Family Medicine
DX: Z12.31 Encounter for screening mammogram for malignant neoplasm of breast (principal); Z78.0 Asymptomatic menopausal state; Z80.3 Family history of malignant neoplasm of breast; R92.313 Mammographic fatty tissue density, bilateral breasts
CPT/HCPCS: 77063; 77067